=== PATIENT | female | born 1985 | race Caucasian/White ===

== ENCOUNTER 2016-12-21 00:59 | Emergency (ER) | payer OTHER ==
[~2016-12-21 00:59] MED LIST: PREN1CAP30 PO
--- NOTE | 2016-12-21 01:58 | PD ---
HPI Travel History International Travel<30 Days: No Contact w/Intl Traveler<30Days: No Known Affected Area: No History of Present Illness HPI This patient is a 31-year-old 1 para 0 EDC is February 14, 2017 presently at 32 weeks gestation she presents with the chief complaint of sharp pain in the suprapubic area. She states the pain began about 2 days ago which sharp intermittent. Has not changed in intensity nothing makes it better or worse. care with Sall[facility] courses remarkable for significant history of drug abuse. Denies fever no chills no nausea no vomiting denies any urinary tract symptoms no rupture of membranes no vaginal bleeding no recent sexual intercourse no discharge no odor no itching the baby is active has some swelling of her feet Significant history of IV Dilaudid use admits to using about 2 hours before coming in also has used cocaine History Past Medical History Narrative Medical No known drug allergies no major medical problems Obstetric History Obstetric History First Past Surgical History Surgical History: No Previous Surgery Family History Family History: Negative Social History Alcohol Use: No Tobacco Use: Yes (smokes a pack of cigarettes per day) Substance Abuse: Yes (IV Dilaudid cocaine abuse) Allergies-Medications (Allergen,Severity, Reaction): Coded Allergies: *MDRO Multi-Drug Resistant Organism (Verified Adverse Reaction, Unknown, ) MRSA (wrist-05/23/16) Home Meds Active Scripts Without A W/Fe Fum-Fe (Provida Dha 16-16-1.25-110 mg)1 Cap Cap1 Cap PO DAILY #60 BOTTLE Ref 5 Prov:Jocelyn Kay CNM [facility] 10/20/16 Review of Systems Gastrointestinal: Abdominal Pain (sharp suprapubic pain as per history of present illness), No: Nausea, Vomiting, Diarrhea, Hematemesis, Hematochezia, Constipation, Changes in Bowel Habits, Indigestion, Loss of Appetite, Other Genitourinary: No: Urgency, Frequency, Dysuria, Nocturia, Hematuria, Decreased Urinary Output, Oliguria, Hesitancy, Dribbling, Incontinence, Pelvic Pain, Dyspareunia, Discharge, Menorrhagia, Vaginal Bleeding, Other Skin: Other (multiple areas of contracts on various parts of her body) Physical Exam Narrative GENERAL: Well-nourished, well-developed patient. Patient is alert oriented 3 and cooperative in no acute distress SKIN: Warm and dry. Multiple pockmarks and scars on her body HEAD: Normocephalic and atraumatic. EYES: No scleral icterus. No injection or drainage. Conjunctiva are pink ENT: No nasal drainage noted. Mucous membranes pink. Airway patent. NECK: Supple, trachea midline. No JVD. No masses no lymphadenopathy no thyroid enlargement CARDIOVASCULAR: Regular rate and rhythm without murmurs, gallops, or rubs. RESPIRATORY: Breath sounds equal bilaterally. No accessory muscle use. ABDOMEN/GI: Gravid consistent with stated gestational age soft no palpable contractions no epigastric or right upper quadrant tenderness no rebound tenderness no tenderness over the right and left round ligament no tenderness in the suprapubic area Gravid to [-] weeks size consistent with gestational age Fundal Height: [-] GENITOURINARY: Speculum exam is done no fluid no blood no discharge the cervix is visibly closed External Genitalia: intact and normal in appearance BUS glands: [-] Cervix: [-] Posterior firm Dilatation: [-] Closed Effacement: [-] 0 Station: [-] Ballotable Presentation: [-] Vertex Membranes: [intact Uterine Contractions: [-] No palpable contraction FHT's: Category: [-] 1 Baseline: [-] 130 Reactive: [-] + Variability: [-] Moderate [id number] variability Decels: [-] 0 EXTREMITIES: No cyanosis 2+ edema of her lower extremities reflexes normal NEUROLOGICAL: Awake and alert. Motor and sensory grossly within normal limits. Five out of 5 muscle strength in all muscle groups. Normal speech. Data Data Vital Signs Reviewed: Yes (blood pressure 122/81 pulse 94 and pictures 98.2) MDM Medical Record Reviewed: Yes (ultrasound reviewed) Interpretation(s) 31-year-old at 32 weeks Not in labor History of drug abuse Rule out UTI Rule out labor risk Narrative Course / MDM UA is negative urine drug screen is + for opiates and cocaine will discharge patient home po fluid hydration kick counts keep next appt Plan External monitoring By mouth fluid hydration fibronectin Urinalysis Reevaluation Diagnosis Diagnosis: Primary Impression: 32 weeks gestation of Additional Impressions: History of drug abuse Cigarette smoker Majestic Mora' contraction Disposition: DISCHARGE HOME Condition: Stable Kenisha Hollis MD Dec 21, 2016 01:58
[2016-12-21 02:49] LABS: BLOOD, URINE NEG (NEG); GLUCOSE,URINE NEG (NEG); KETONE, URINE TRACE mg/dL (NEG); NITRITE,URINE NEG (NEG); URINE COLOR YELLOW (YELLW/STRAW)
[2016-12-21 02:57] LABS: COMMENT (UR) CULT NOT INDICATED; CULTURE IF INDICATED CULT NOT INDICATED; MUCUS URINE FEW /lpf (OCC); SQUAMOUS EPITHELIAL CELL URINE 1 /hpf (0-5)
[2016-12-21 08:31] LABS: AMPHETAMINE, URINE NEG (NEG); BARBITURATES, URINE NEG (NEG); COCAINE, URINE POS (NEG)
== END 2016-12-21 03:07 | disposition home or self-care (01) ==
LOC: HOBED 00:59
DX: O47.03 False labor before 37 completed weeks of gestation, third trimester (principal); O99.333 Smoking (tobacco) complicating pregnancy, third trimester; Z3A.32 32 weeks gestation of pregnancy
CPT/HCPCS: 80307; 81001; 82731; 99283

== ENCOUNTER 2017-01-24 18:32 | Inpatient (IN) | payer OTHER ==
[~2017-01-24] VITALS: Ht 165.1 cm; Wt 68.0 kg
[2017-01-24] MEDS ORDERED: DILA8TAB4 PO (19:37)
[2017-01-24] MEDS ORDERED: REMOVE OLD PATCH T-DERMAL SCH (20:15)
[2017-01-24] MEDS ORDERED: cloNIDine HCL 0.1 MG TAB PO PRN (20:15)
[2017-01-24] MEDS ORDERED: PROMETHAZINE HCL 25 MG TAB PO PRN (20:15)
[2017-01-24] MEDS ORDERED: SODIUM CHLORIDE 0.9% FLUSH 10 ML FLUSH IV FLUSH PRN (20:30)
[2017-01-24] MEDS: SODIUM CHLORIDE 0.9% FLUSH 10 ML FLUSH IV FLUSH SCH (21:00)
[2017-01-24] MEDS ORDERED: ZOLPIDEM TARTRATE 10 MG TAB PO SCH (21:00)
[2017-01-24] MEDS ORDERED: NICOTINE 21 MG/24 HR PATCH T-DERMAL SCH (21:00)
[2017-01-24 22:01] LABS: BLOOD, URINE NEG (NEG); COMMENT (UR) CULT NOT INDICATED; CULTURE IF INDICATED CULT NOT INDICATED; GLUCOSE,URINE NEG (NEG); KETONE, URINE NEG (NEG); MUCUS URINE FEW /lpf (OCC); NITRITE,URINE NEG (NEG); SQUAMOUS EPITHELIAL CELL URINE 1 /hpf (0-5); URINE COLOR YELLOW (YELLW/STRAW)
[2017-01-24 22:06] LABS: AMPHETAMINE, URINE NEG (NEG); BARBITURATES, URINE NEG (NEG)
[2017-01-24 22:12] LABS: COCAINE, URINE POS (NEG)
[2017-01-25 00:20] VITALS: BP 119/68; PULSE 61
--- NOTE | 2017-01-25 00:31 | HHI.HP ---
History & Physical H&P [facility] OB ED Note (Detail) Patient Name: Melida Moran Unit Number: [id number] Date of : 1985 Patient Status: Admitted Inpatient (obs) Attending Doctor: Lyla Brasher MD HPI HPI Chief Complaint back and abdominal pain Date Seen: Jan 24, 2017 Travel History International Travel<30 Days: No Contact w/Intl Traveler<30Days: No Known Affected Area: No History of Present Illness HPI This is a 31y/o at 37w who presents with her significant other for evaluation of lower back and abdominal pain. On presentation multiple scabs/ scars were noted on her arms and scabs on her face. The scabs on her arms appear infected erythematous with palpable cords in the veins, in fact pt was diagnosed with MRSA in 2016 due to abscess of her wrist. Pt admits to active IVDU in the with: Diluadid 8mg injected 4 times per day, which she crushes and and reconstitutes with tap water and injects, sometimes with a clean needles, sometimes reusing the needle. She also reports crack cocaine use about 1/2 gram per day. Last drug use at 3pm. Pt has used drugs for the last 3 years, has not had any HepC/HIV/cardiac echo in the . She and her partner are both interested in a drug detox program and will reach out to Dr. Reyna for assistance. Pt denies vaginal bleeding, contractions or leakage of fluid with reports of active movements. care at [facility], care complicated by: 1. IVDU and crack cocaine abuse in 2. tobacco abuse in 3. insufficient care, pt has not had labs done as yet Para: 0 : 1 History (Limited) History Past Medical History Medical History: Denies Significant Hx Past Surgical History Surgical History: No Previous Surgery Family History Family History: Negative Social History Alcohol Use: No Tobacco Use: No Substance Abuse: No Allergies-Medications Allergies-Medications (Allergen,Severity, Reaction): Coded Allergies: No Known Allergies (Unverified , 01/24/17) Home Meds Reported Medications Hydromorphone (Dilaudid)8 Mg Tab8 Mg PO Q6H PRN (Pain Management) Ref 0 01/24/17 ROS Review of Systems Except as stated in HPI: all other systems reviewed are Neg Physical Exam Physical Exam Narrative GENERAL: Well-nourished, well-developed patient. SKIN: Warm and dry. HEAD: Normocephalic and atraumatic. EYES: No scleral icterus. No injection or drainage. ENT: No nasal drainage noted. Mucous membranes pink. Airway patent. NECK: Supple, trachea midline. No JVD. CARDIOVASCULAR: Regular rate and rhythm without murmurs, gallops, or rubs. RESPIRATORY: Breath sounds equal bilaterally. No accessory muscle use. BREASTS: Bilateral exam showed no masses , no retractions, no nipple discharge. ABDOMEN/GI: Abdomen soft, non-tender, bowel sounds present, no rebound, no guarding Gravid to 37 weeks size GENITOURINARY: External Genitalia: intact and normal in appearance Cervix: 1/50/-2 FHT's: Category:1 EXTREMITIES: No cyanosis or edema. BACK: Nontender without obvious deformity. No CVA tenderness. NEUROLOGICAL: Awake and alert. Motor and sensory grossly within normal limits. Five out of 5 muscle strength in all muscle groups. Normal speech. Data Data Data Vital Signs Reviewed: Yes Orders Diet Regular Basic (01/24/17 Dinner) Ob (2e) Additional Admit Info (01/24/17 19:50) Special Serology (01/24/17 20:12) Blood Culture (01/24/17 20:13) Ob/Psych Drug Screen, Urine (01/24/17 20:13) Urinalysis - C+S If Indicated (01/24/17 20:13) Specimen To Be Collected PRN (01/24/17 20:13) Hepatic Functional Panel (01/24/17 20:13) Hepatitis C Ab,Igg (01/24/17 20:13) Basic Metabolic Panel (Bmp) (01/24/17 20:13) Complete Blood Count With Diff (01/24/17 20:13) Westergren Sedimentation Rate (01/24/17 20:13) Echo 2d Limited (01/24/17 20:13) Us Ob Bpp Wo Nst (01/24/17 ) Consult Obstetrics (01/24/17 ) Nicotine 21 Mg Patch.24 Hr (Habitrol 21 (01/24/17 21:00) Remove Old Patch (01/24/17 20:15) Clonidine (Catapres) (01/24/17 20:15) Hydroxyzine Pamoate (Vistaril) (01/24/17 20:15) Zolpidem (Ambien) (01/24/17 21:00) Promethazine (Phenergan) (01/24/17 20:15) Place In Observation (01/24/17 ) Vital Signs (Adult) [id number] AWAKE (01/24/17 20:24) Heart (01/24/17 20:24) Activity Oob Ad Narcisa (01/24/17 20:24) Sodium Chloride 0.9% Flush (Ns Flush) (01/24/17 21:00) Sodium Chloride 0.9% Flush (Ns Flush) (01/24/17 20:30) Group B Beta Strep Scrn (Gbs) (01/24/17 20:26) (Hub Use Only)Inp Phy Cons/Ref (01/24/17 ) Ur Bath Salts (01/24/17 19:50) Ur Heroin (01/24/17 19:50) Ur K2 Spice (01/24/17 19:50) Ur Ecstasy (01/24/17 19:50) Phencyclidine Urine (Pcp) (01/24/17 19:50) Gc And Chlamydia Pcr (01/24/17 22:45) Mrsa Pcr Surveillance (01/24/17 19:50) Labs Laboratory Tests Test 01/24/17 19:50 Urine Color YELLOW Urine Turbidity CLEAR Urine pH 6.0 Urine Specific [place] 1.006 Urine Protein NEG Urine Glucose (UA) NEG Urine Ketones NEG Urine Occult Blood NEG Urine Nitrite NEG Urine Bilirubin NEG Urine Urobilinogen LESS THAN 2.0 Urine Leukocyte Esterase SMALL Urine RBC 1 Urine WBC 1 Urine Squamous Epithelial 1 Cells Urine Mucus FEW Microscopic Urinalysis Comment CULT NOT INDICATED Urine Opiates Screen POS Urine Barbiturates Screen NEG Urine Amphetamines Screen NEG Urine Benzodiazepines Screen NEG Urine Cocaine Screen POS Urine Cannabinoids Screen NEG Date/Time Procedure Status Source Growth 01/24/17 19:50 Group B Streptococcus Screen Received Genital Vaginal Pending MDM MDM Medical Record Reviewed: Yes Narrative Course / MDM 31y/o at 37w with IVDU and multiple active abscesses. Plan -blood cultures, cbc, comp, HIV/HepC, gc/chl, LFTs, BMP, ESR, Rubella (all pn labs) -echo in AM -f/u with ID if needed based on results -Dr. Reyna will see patient in AM, placed order for buprenorphine 4mg SL -continuous monitoring overnight -clonidine, vistiril, ambien, phenergan prn symptoms -Nicotine patch q day -NST/BPP in am Lyla Brasher MD Jan 24, 2017 23:50 Lyla Brasher MD Jan 25, 2017 00:31
[2017-01-25 01:05] LABS: WESTERGREN SEDIMENTATION RATE 66 mm/hr (0-20)
[2017-01-25 01:10] LABS: BICARBONATE 25.8 MEQ/L (21.0-32.0); POTASSIUM 3.4 MEQ/L (3.5-5.1)
[2017-01-25 01:12] LABS: INDIRECT BILIRUBIN 0.1 MG/DL (0.0-0.8); TOTAL BILIRUBIN ADULT 0.3 MG/DL (0.2-1.0)
[2017-01-25 01:23] LABS: AUTOMATED NEUTROPHIL # 5.9 TH/MM3 (1.8-7.7); BASOPHIL % 0.4 % (0.0-2.0); EOSINOPHIL # 0.1 TH/MM3 (0-0.4); EOSINOPHIL % 0.7 % (0.0-4.0); HEMATOCRIT 28.9 % (35.0-46.0); HEMO FLAGS DIFF FINAL; LYMPH % 26.7 % (9.0-44.0); LYMPHOCYTE # 2.5 TH/MM3 (1.0-4.8); MEAN CELL VOLUME 62.7 FL (80.0-100.0); MEAN CORPUSCULAR HEMOGLOBIN 20.5 PG (27.0-34.0); MEAN CORPUSCULAR HGB CONC 32.7 % (32.0-36.0); MONO % 8.6 % (0.0-8.0); NEUT % 63.6 % (16.0-70.0); PLATELET COUNT 309 TH/MM3 (150-450); RED BLOOD COUNT 4.61 MIL/MM3 (4.00-5.30); RED CELL DISTRIBUTION WIDTH 16.4 % (11.6-17.2); WHITE BLOOD COUNT 9.2 TH/MM3 (4.0-11.0)
[2017-01-25 02:23] LABS: CHLAMYDIA PCR NOT DETECTED (NOT DETECT); NEISSERIA PCR NOT DETECTED (NOT DETECT)
[2017-01-25] MEDS: SODIUM CHLORIDE 0.9% FLUSH 10 ML FLUSH IV FLUSH SCH (09:00)
[2017-01-25 09:25] VITALS: BP 125/73; PULSE 53
[2017-01-25 09:26] VITALS: RESP 20; TEMP 97.7
--- NOTE | 2017-01-25 09:44 | PD.CONS ---
HPI Chief Complaint withdrawal from dilaudid at around 37 weeks Date Seen: Jan 25, 2017 Travel History International Travel<30 Days: No Contact w/Intl Traveler<30Days: No Known Affected Area: No History of Present Illness HPI 31 yo owf G1 at about 37 1/2 weeks EGA by Deedee ortega at [facility] presented last evening desiring to be started on buprenorphine. She is homeless. Her FOB just was released from shelter and brought her here. 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 They progressed to IV dialuadid and cocaine. She does not share needles but does reuse them. She dissolves the dilaudid in tap water. She has many abcesses on her arms and a hematoma on the left arm. She has severe picking from her cocaine, denies methadone, THC, methamphetamine. Does not drink. Does smoke cigarettes. She gets SOB when walking She has no surgeries other than pilonidal cyst removal in distant past. On no medications. She does not know her hep C or HIV status. GFM No leakage, discharge, bleeding or contractions. Allergies-Medications (Allergen,Severity, Reaction): Coded Allergies: No Known Allergies (Unverified , 01/24/17) Home Meds Reported Medications Hydromorphone (Dilaudid)8 Mg Tab8 Mg PO Q6H PRN (Pain Management) Ref 0 01/24/17 Physical Exam Vital Signs Date Time Temp Pulse Resp B/P Pulse Ox O2 Delivery O2 Flow Rate FiO2 01/25/17 00:20 61 119/68 Narrative GENERAL: ill appearing female in withdrawal with many sores on face, neck and arms SKIN diaphoretic HEAD: Normocephalic and atraumatic. EYES: No scleral icterus. No injection or drainage. ENT: sniffling and coughing and yawning NECK: Supple, trachea midline. No JVD. CARDIOVASCULAR: Regular rate and rhythm without murmurs, gallops, or rubs. RESPIRATORY: Breath sounds equal bilaterally. No accessory muscle use. BREASTS: Bilateral exam showed no masses , no retractions, no nipple discharge. ABDOMEN/GI: Abdomen soft, non-tender, bowel sounds present, no rebound, no guarding Gravid to [-] weeks size Fundal Height: [-] GENITOURINARY: External Genitalia: intact and normal in appearance cervical check /-1 strip category 1 BPP 01/30 EXTREMITIES: Many lesions, abcesses in various stage of healing or acute hematoma, thrombophleblitis BACK: Nontender without obvious deformity. No CVA tenderness. NEUROLOGICAL: Awake and alert. Motor and sensory grossly within normal limits. Five out of 5 muscle strength in all muscle groups. Normal speech. Data Data Orders Diet Regular Basic (01/24/17 Dinner) Ob (2e) Additional Admit Info (01/24/17 19:50) Special Serology (01/24/17 20:12) Blood Culture (01/24/17 20:13) Ob/Psych Drug Screen, Urine (01/24/17 20:13) Urinalysis - C+S If Indicated (01/24/17 20:13) Specimen To Be Collected PRN (01/24/17 20:13) Hepatic Functional Panel (01/24/17 20:13) Hepatitis C Ab,Igg (01/24/17 20:13) Basic Metabolic Panel (Bmp) (01/24/17 20:13) Complete Blood Count With Diff (01/24/17 20:13) Westergren Sedimentation Rate (01/24/17 20:13) Consult Obstetrics (01/24/17 ) Nicotine 21 Mg Patch.24 Hr (Habitrol 21 (01/24/17 21:00) Remove Old Patch (01/24/17 20:15) Clonidine (Catapres) (01/24/17 20:15) Hydroxyzine Pamoate (Vistaril) (01/24/17 20:15) Zolpidem (Ambien) (01/24/17 21:00) Promethazine (Phenergan) (01/24/17 20:15) Place In Observation (01/24/17 ) Vital Signs (Adult) SUDHAKAR.[id number] AWAKE (01/24/17 20:24) Heart (01/24/17 20:24) Activity Oob Ad Narcisa (01/24/17 20:24) Sodium Chloride 0.9% Flush (Ns Flush) (01/24/17 21:00) Sodium Chloride 0.9% Flush (Ns Flush) (01/24/17 20:30) Group B Beta Strep Scrn (Gbs) (01/24/17 20:26) Ur Bath Salts (01/24/17 19:50) Ur Heroin (01/24/17 19:50) Ur K2 Spice (01/24/17 19:50) Ur Ecstasy (01/24/17 19:50) Phencyclidine Urine (Pcp) (01/24/17 19:50) Gc And Chlamydia Pcr (01/24/17 22:45) Mrsa Pcr Surveillance (01/24/17 19:50) (Hub Use Only)Inp Phy Cons/Ref (01/25/17 05:01) Echo 2d Limited (01/25/17 20:13) Us Ob Bpp Wo Nst W Repeat (01/24/17 ) (Hub Use Only)Inp Phy Cons/Ref (01/25/17 ) Consult Infectious Disease (01/25/17 ) Buprenorphine (Buprenorphine) (01/25/17 10:00) Case Management Consult (01/25/17 ) Labs Laboratory Tests Test 01/24/17 01/24/17 01/25/17 19:50 22:45 00:02 Urine Opiates Screen POS Urine Barbiturates Screen NEG Urine Amphetamines Screen NEG Urine Benzodiazepines Screen NEG Urine Cocaine Screen POS Urine Cannabinoids Screen NEG Urine Color YELLOW Urine Turbidity CLEAR Urine pH 6.0 Urine Specific [place] 1.006 Urine Protein NEG Urine Glucose (UA) NEG Urine Ketones NEG Urine Occult Blood NEG Urine Nitrite NEG Urine Bilirubin NEG Urine Urobilinogen LESS THAN 2.0 Urine Leukocyte Esterase SMALL Urine RBC 1 Urine WBC 1 Urine Squamous Epithelial 1 Cells Urine Mucus FEW Microscopic Urinalysis Comment CULT NOT INDICATED Nasal Screen MRSA (PCR) MRSA NOT DETECTED Chlamydia trachomatis DNA NOT DETECTED (PCR) Neisseria gonorrhoeae DNA NOT DETECTED (PCR) White Blood Count 9.2 Red Blood Count 4.61 Hemoglobin 9.4 Hematocrit 28.9 Mean Corpuscular Volume 62.7 Mean Corpuscular Hemoglobin 20.5 Mean Corpuscular Hemoglobin 32.7 Concent Red Cell Distribution Width 16.4 Platelet Count 309 Mean Platelet Volume 9.3 Neutrophils (%) (Auto) 63.6 Lymphocytes (%) (Auto) 26.7 Monocytes (%) (Auto) 8.6 Eosinophils (%) (Auto) 0.7 Basophils (%) (Auto) 0.4 Neutrophils # (Auto) 5.9 Lymphocytes # (Auto) 2.5 Monocytes # (Auto) 0.8 Eosinophils # (Auto) 0.1 Basophils # (Auto) 0.0 CBC Comment DIFF FINAL Differential Comment Erythrocyte Sedimentation Rate 66 Sodium Level 141 Potassium Level 3.4 Chloride Level 108 Carbon Dioxide Level 25.8 Anion Gap 7 Blood Urea Nitrogen 7 Creatinine 0.72 Estimat Glomerular Filtration 94 Rate Random Glucose 97 Calcium Level 8.1 Total Bilirubin 0.3 Direct Bilirubin 0.2 Indirect Bilirubin 0.1 Aspartate Amino Transf 41 (AST/SGOT) Alanine Aminotransferase 39 (ALT/SGPT) Alkaline Phosphatase 206 Total Protein 6.6 Albumin 2.2 Date/Time Procedure Status Source Growth 01/24/17 19:50 Group B Streptococcus Screen Received Genital Vaginal Pending MDM Interpretation(s) near term/term IUP with active withdrawl from IV dilaudid (last used 18 hours ago) COWS 18 start buprenophine support with clonidine and visteral consults for cardiology, ID, psych continuous monitoring she and FOB desire to keep child but have no safe housing, financial support He is actively using [facility] with [facility] called and notified of needs. Mala Reyna MD Jan 25, 2017 09:44
[2017-01-25] MEDS: BUPRENORPHINE HCL 8 MG SUBLINGUAL TAB SL PRN ×2 (10:39→12:37)
--- NOTE | 2017-01-25 12:57 | ECHRPT ---
Indication: endocarditis CONCLUSIONS Normal left ventricular size. Wall thickness is measured at the upper limits of normal. No regional wall motion abnormalities are present. No mitral valve regurgitation. No mitral valve stenosis. The aortic valve is not well visualized. No tricuspid regurgitation. The pulmonary valve is not well visualized. BP: / HR: Rhythm: MEASUREMENTS (Male / Female) Normal Values Technical Quality:Technically difficult study 2D ECHO LV Diastolic Diameter PLAX 4.1 cm 4.2 - 5.9 / 3.9 - 5.3 cm LV Systolic Diameter PLAX 3.0 cm IVS Diastolic Thickness 1.1 cm 0.6 - 1.0 / 0.6 - 0.9 cm LVPW Diastolic Thickness 1.0 cm 0.6 - 1.0 / 0.6 - 0.9 cm LV Relative Wall Thickness 0.5 RV Internal Dim ED PLAX 2.5 cm M-MODE Aortic Root Diameter MM 3.4 cm LA Systolic Diameter MM 3.2 cm LA Ao Ratio MM 0.9 AV Cusp Separation MM 1.8 cm DOPPLER TR Peak Velocity 294.5 cm/s TR Peak Gradient 34.7 mmHg FINDINGS LEFT VENTRICLE Normal left ventricular size. Wall thickness is measured at the upper limits of normal. The left ventricular systolic function is normal with an estimated ejection fraction in the range of 60-65%. No regional wall motion abnormalities are present. RIGHT VENTRICLE Normal right ventricular size and systolic function. LEFT ATRIUM The left atrial size is normal. RIGHT ATRIUM The right atrial size is normal. ATRIAL SEPTUM Normal atrial septal thickness without atrial level shunting by limited color doppler interrogation. AORTA The aortic root and proximal ascending aorta are normal in size on limited imaging. MITRAL VALVE Structurally normal mitral valve. No mitral valve regurgitation. No mitral valve stenosis. AORTIC VALVE The aortic valve is not well visualized. TRICUSPID VALVE Structurally normal tricuspid valve. No tricuspid regurgitation. PULMONARY VALVE The pulmonary valve is not well visualized. VESSELS The inferior vena cava is normal in size. PERICARDIUM No pericardial effusion. Timothy Oh MD, FACC (Electronically Signed) Final Date:25 January 2017 12:56
[2017-01-25 13:56] VITALS: BP 134/71; PULSE 52
[2017-01-28 10:51] LABS: BATH SALTS (MDPV) UR NEG (NEG); ECSTASY (MDMA) UR NEG (NEG); GABAPENTIN UR NEG (NEG); K2 SPICE UR NEG (NEG); OBMETHADONE UR NEG (NEG); OXYCODONE (PERCODAN) NEG (NEG); PHENCYCLIDINE URINE NEG (NEG)
[2017-01-28 10:52] LABS: HYDROMORPHONE U POS (NEG)
[2017-01-28 10:53] LABS: HEROIN (6-ACETYLMORPHINE) UR POS (NEG)
== END 2017-01-25 14:15 | disposition left against medical advice (07) | DRG 781 ==
LOC: HOBED 18:32 → H2EA 19:53 → UNDOADMOB 19:53 → H2EA 20:25 → UNDOADMIN 01-25 09:38 → H2EA 01-25 09:38 → UNDODISOB 01-25 14:15 → UNDODISIN 01-25 14:15
PROVIDERS: ADMIT Obstetrics & Gynecology; ATTEND Obstetrics & Gynecology
DX: O99.323 Drug use complicating pregnancy, third trimester (principal); F15.93 Other stimulant use, unspecified with withdrawal; F14.90 Cocaine use, unspecified, uncomplicated; O99.333 Smoking (tobacco) complicating pregnancy, third trimester; Z3A.37 37 weeks gestation of pregnancy; Z59.0 Homelessness
CPT/HCPCS: 76816; 76819; 80048; 80076; 80307; 81001; 85025; 85652; 86703; 86803; 87081; 87491; 87591; 87640; 87641; 93308; G0481; Q0169

== ENCOUNTER 2017-01-26 00:34 | Inpatient (IN) | payer OTHER ==
[~2017-01-26] VITALS: Ht 165.1 cm; Wt 68.0 kg
[2017-01-26] VITALS (9 sets, daily range): BP systolic 102–118; BP diastolic 59–70; PULSE 52–62; RESP 16–18; TEMP 97.4–98.4
[~2017-01-26 00:34] MED LIST changes: +DILA8TAB4 PO; -PREN1CAP30 PO
--- NOTE | 2017-01-26 01:22 | HHI.HP ---
History & Physical H&P Patient Name: Melida Moran Unit Number: [id number] Date of : 1985 Patient Status: Discharged Inpatient Attending Doctor: Lyla Brasher MD HPI HPI Chief Complaint back and abdominal pain Date Seen: Jan 24, 2017 Travel History International Travel<30 Days: No Contact w/Intl Traveler<30Days: No Known Affected Area: No History of Present Illness HPI This is a 31y/o at 37w who presents with her significant other for evaluation of lower back and abdominal pain. On presentation multiple scabs/ scars were noted on her arms and scabs on her face. The scabs on her arms appear infected erythematous with palpable cords in the veins, in fact pt was diagnosed with MRSA in 2016 due to abscess of her wrist. Pt admits to active IVDU in the with: Diluadid 8mg injected 4 times per day, which she crushes and and reconstitutes with tap water and injects, sometimes with a clean needles, sometimes reusing the needle. She also reports crack cocaine use about 1/2 gram per day. Last drug use at 3pm. Pt has used drugs for the last 3 years, has not had any HepC/HIV/cardiac echo in the . She and her partner are both interested in a drug detox program and will reach out to Dr. Reyna for assistance. Pt denies vaginal bleeding, contractions or leakage of fluid with reports of active movements. care at [facility], care complicated by: 1. IVDU and crack cocaine abuse in 2. tobacco abuse in 3. insufficient care, pt has not had labs done as yet Para: 0 : 1 History (Limited) History Past Medical History Medical History: Denies Significant Hx Past Surgical History Surgical History: No Previous Surgery Family History Family History: Negative Social History Alcohol Use: No Tobacco Use: No Substance Abuse: No Allergies-Medications Allergies-Medications (Allergen,Severity, Reaction): Coded Allergies: No Known Allergies (Unverified , 01/24/17) Home Meds Reported Medications Hydromorphone (Dilaudid)8 Mg Tab8 Mg PO Q6H PRN (Pain Management) Ref 0 01/24/17 ROS Review of Systems Except as stated in HPI: all other systems reviewed are Neg Physical Exam Physical Exam Narrative GENERAL: Well-nourished, well-developed patient. SKIN: Warm and dry. HEAD: Normocephalic and atraumatic. EYES: No scleral icterus. No injection or drainage. ENT: No nasal drainage noted. Mucous membranes pink. Airway patent. NECK: Supple, trachea midline. No JVD. CARDIOVASCULAR: Regular rate and rhythm without murmurs, gallops, or rubs. RESPIRATORY: Breath sounds equal bilaterally. No accessory muscle use. BREASTS: Bilateral exam showed no masses , no retractions, no nipple discharge. ABDOMEN/GI: Abdomen soft, non-tender, bowel sounds present, no rebound, no guarding Gravid to 37 weeks size GENITOURINARY: External Genitalia: intact and normal in appearance Cervix: 50/-2 FHT's: Category:1 EXTREMITIES: No cyanosis or edema. BACK: Nontender without obvious deformity. No CVA tenderness. NEUROLOGICAL: Awake and alert. Motor and sensory grossly within normal limits. Five out of 5 muscle strength in all muscle groups. Normal speech. Data Data Data Vital Signs Reviewed: Yes Orders Diet Regular Basic (01/24/17 Dinner) Ob (2e) Additional Admit Info (01/24/17 19:50) Special Serology (01/24/17 20:12) Blood Culture (01/24/17 20:13) Ob/Psych Drug Screen, Urine (01/24/17 20:13) Urinalysis - C+S If Indicated (01/24/17 20:13) Specimen To Be Collected PRN (01/24/17 20:13) Hepatic Functional Panel (01/24/17 20:13) Hepatitis C Ab,Igg (01/24/17 20:13) Basic Metabolic Panel (Bmp) (01/24/17 20:13) Complete Blood Count With Diff (01/24/17 20:13) Westergren Sedimentation Rate (01/24/17 20:13) Echo 2d Limited (01/24/17 20:13) Us Ob Bpp Wo Nst (01/24/17 ) Consult Obstetrics (01/24/17 ) Nicotine 21 Mg Patch.24 Hr (Habitrol 21 (01/24/17 21:00) Remove Old Patch (01/24/17 20:15) Clonidine (Catapres) (01/24/17 20:15) Hydroxyzine Pamoate (Vistaril) (01/24/17 20:15) Zolpidem (Ambien) (01/24/17 21:00) Promethazine (Phenergan) (01/24/17 20:15) Place In Observation (01/24/17 ) Vital Signs (Adult) SUDHAKAR.[id number] AWAKE (01/24/17 20:24) Heart (01/24/17 20:24) Activity Oob Ad Narcisa (01/24/17 20:24) Sodium Chloride 0.9% Flush (Ns Flush) (01/24/17 21:00) Sodium Chloride 0.9% Flush (Ns Flush) (01/24/17 20:30) Group B Beta Strep Scrn (Gbs) (01/24/17 20:26) (Hub Use Only)Inp Phy Cons/Ref (01/24/17 ) Ur Bath Salts (01/24/17 19:50) Ur Heroin (01/24/17 19:50) Ur K2 Spice (01/24/17 19:50) Ur Ecstasy (01/24/17 19:50) Phencyclidine Urine (Pcp) (01/24/17 19:50) Gc And Chlamydia Pcr (01/24/17 22:45) Mrsa Pcr Surveillance (01/24/17 19:50) Labs Laboratory Tests Test 01/24/17 19:50 Urine Color YELLOW Urine Turbidity CLEAR Urine pH 6.0 Urine Specific [place] 1.006 Urine Protein NEG Urine Glucose (UA) NEG Urine Ketones NEG Urine Occult Blood NEG Urine Nitrite NEG Urine Bilirubin NEG Urine Urobilinogen LESS THAN 2.0 Urine Leukocyte Esterase SMALL Urine RBC 1 Urine WBC 1 Urine Squamous Epithelial 1 Cells Urine Mucus FEW Microscopic Urinalysis Comment CULT NOT INDICATED Urine Opiates Screen POS Urine Barbiturates Screen NEG Urine Amphetamines Screen NEG Urine Benzodiazepines Screen NEG Urine Cocaine Screen POS Urine Cannabinoids Screen NEG Date/Time Procedure Status Source Growth 01/24/17 19:50 Group B Streptococcus Screen Received Genital Vaginal Pending MDM MDM Medical Record Reviewed: Yes Narrative Course / MDM 31y/o at 37w with IVDU and multiple active abscesses. Plan -blood cultures, cbc, comp, HIV/HepC, gc/chl, LFTs, BMP, ESR, Rubella (all pn labs) -echo in AM -f/u with ID if needed based on results -Dr. Reyna will see patient in AM, placed order for buprenorphine 4mg SL -continuous monitoring overnight -clonidine, vistiril, ambien, phenergan prn symptoms -Nicotine patch q day -NST/BPP in am Lyla Brasher MD Jan 25, 2017 00:31 Conrad Diehl II, MD Jan 26, 2017 01:22
[2017-01-26] MEDS ORDERED: ONDANSETRON ODT 4 MG TAB PO PRN (01:30)
[2017-01-26] MEDS ORDERED: ACETAMINOPHEN 325 MG TAB PO PRN (01:30)
[2017-01-26] MEDS ORDERED: ONDANSETRON HCL 4 MG/2 ML VIAL IV PRN (01:30)
[2017-01-26] MEDS ORDERED: ALUMINUM/MAGNESIUM/SIMETH 30 ML CUP PO PRN (01:30)
[2017-01-26] MEDS ORDERED: ZOLPIDEM TARTRATE 5 MG TAB PO PRN (01:30)
--- NOTE | 2017-01-26 01:38 | PD.CONS ---
History & Physical H&P Patient Name: Melida Moran Unit Number: [id number] Date of : 1985 Patient Status: Discharged Inpatient Attending Doctor: Lyla Brasher MD HPI HPI Chief Complaint withdrawal from dilaudid at around 37 weeks Date Seen: Jan 25, 2017 Travel History International Travel<30 Days: No Contact w/Intl Traveler<30Days: No Known Affected Area: No History of Present Illness HPI 31 yo owf G1 at about 37 1/2 weeks EGA by Deedee shannon at [facility] presented last evening desiring to be started on buprenorphine. She is homeless. Her FOB just was released from nursing home and brought her here. 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 They progressed to IV dialuadid and cocaine. She does not share needles but does reuse them. She dissolves the dilaudid in tap water. She has many abcesses on her arms and a hematoma on the left arm. She has severe picking from her cocaine, denies methadone, THC, methamphetamine. Does not drink. Does smoke cigarettes. She gets SOB when walking She has no surgeries other than pilonidal cyst removal in distant past. On no medications. She does not know her hep C or HIV status. GFM No leakage, discharge, bleeding or contractions. History (Limited) History Allergies-Medications Allergies-Medications (Allergen,Severity, Reaction): Coded Allergies: No Known Allergies (Unverified , 01/24/17) Home Meds Reported Medications Hydromorphone (Dilaudid)8 Mg Tab8 Mg PO Q6H PRN (Pain Management) Ref 0 01/24/17 ROS Review of Systems Physical Exam Physical Exam Vital Signs Date Time Temp Pulse Resp B/P Pulse Ox O2 Delivery O2 Flow Rate FiO2 01/25/17 00:20 61 119/68 Narrative GENERAL: ill appearing female in withdrawal with many sores on face, neck and arms SKIN diaphoretic HEAD: Normocephalic and atraumatic. EYES: No scleral icterus. No injection or drainage. ENT: sniffling and coughing and yawning NECK: Supple, trachea midline. No JVD. CARDIOVASCULAR: Regular rate and rhythm without murmurs, gallops, or rubs. RESPIRATORY: Breath sounds equal bilaterally. No accessory muscle use. BREASTS: Bilateral exam showed no masses , no retractions, no nipple discharge. ABDOMEN/GI: Abdomen soft, non-tender, bowel sounds present, no rebound, no guarding Gravid to [-] weeks size Fundal Height: [-] GENITOURINARY: External Genitalia: intact and normal in appearance cervical check 50/-1 strip category 1 BPP 01/30 EXTREMITIES: Many lesions, abcesses in various stage of healing or acute hematoma, thrombophleblitis BACK: Nontender without obvious deformity. No CVA tenderness. NEUROLOGICAL: Awake and alert. Motor and sensory grossly within normal limits. Five out of 5 muscle strength in all muscle groups. Normal speech. Data Data Data Orders Diet Regular Basic (01/24/17 Dinner) Ob (2e) Additional Admit Info (01/24/17 19:50) Special Serology (01/24/17 20:12) Blood Culture (01/24/17 20:13) Ob/Psych Drug Screen, Urine (01/24/17 20:13) Urinalysis - C+S If Indicated (01/24/17 20:13) Specimen To Be Collected PRN (01/24/17 20:13) Hepatic Functional Panel (01/24/17 20:13) Hepatitis C Ab,Igg (01/24/17 20:13) Basic Metabolic Panel (Bmp) (01/24/17 20:13) Complete Blood Count With Diff (01/24/17 20:13) Westergren Sedimentation Rate (01/24/17 20:13) Consult Obstetrics (01/24/17 ) Nicotine 21 Mg Patch.24 Hr (Habitrol 21 (01/24/17 21:00) Remove Old Patch (01/24/17 20:15) Clonidine (Catapres) (01/24/17 20:15) Hydroxyzine Pamoate (Vistaril) (01/24/17 20:15) Zolpidem (Ambien) (01/24/17 21:00) Promethazine (Phenergan) (01/24/17 20:15) Place In Observation (01/24/17 ) Vital Signs (Adult) SUDHAKAR.P1E-UWCUK AWAKE (01/24/17 20:24) Heart (01/24/17 20:24) Activity Oob Ad Narcisa (01/24/17 20:24) Sodium Chloride 0.9% Flush (Ns Flush) (01/24/17 21:00) Sodium Chloride 0.9% Flush (Ns Flush) (01/24/17 20:30) Group B Beta Strep Scrn (Gbs) (01/24/17 20:26) Ur Bath Salts (01/24/17 19:50) Ur Heroin (01/24/17 19:50) Ur K2 Spice (01/24/17 19:50) Ur Ecstasy (01/24/17 19:50) Phencyclidine Urine (Pcp) (01/24/17 19:50) Gc And Chlamydia Pcr (01/24/17 22:45) Mrsa Pcr Surveillance (01/24/17 19:50) (Hub Use Only)Inp Phy Cons/Ref (01/25/17 05:01) Echo 2d Limited (01/25/17 20:13) Us Ob Bpp Wo Nst W Repeat (01/24/17 ) (Hub Use Only)Inp Phy Cons/Ref (01/25/17 ) Consult Infectious Disease (01/25/17 ) Buprenorphine (Buprenorphine) (01/25/17 10:00) Case Management Consult (01/25/17 ) Labs Laboratory Tests Test 01/24/17 01/24/17 01/25/17 19:50 22:45 00:02 Urine Opiates Screen POS Urine Barbiturates Screen NEG Urine Amphetamines Screen NEG Urine Benzodiazepines Screen NEG Urine Cocaine Screen POS Urine Cannabinoids Screen NEG Urine Color YELLOW Urine Turbidity CLEAR Urine pH 6.0 Urine Specific [place] 1.006 Urine Protein NEG Urine Glucose (UA) NEG Urine Ketones NEG Urine Occult Blood NEG Urine Nitrite NEG Urine Bilirubin NEG Urine Urobilinogen LESS THAN 2.0 Urine Leukocyte Esterase SMALL Urine RBC 1 Urine WBC 1 Urine Squamous Epithelial 1 Cells Urine Mucus FEW Microscopic Urinalysis Comment CULT NOT INDICATED Nasal Screen MRSA (PCR) MRSA NOT DETECTED Chlamydia trachomatis DNA NOT DETECTED (PCR) Neisseria gonorrhoeae DNA NOT DETECTED (PCR) White Blood Count 9.2 Red Blood Count 4.61 Hemoglobin 9.4 Hematocrit 28.9 Mean Corpuscular Volume 62.7 Mean Corpuscular Hemoglobin 20.5 Mean Corpuscular Hemoglobin 32.7 Concent Red Cell Distribution Width 16.4 Platelet Count 309 Mean Platelet Volume 9.3 Neutrophils (%) (Auto) 63.6 Lymphocytes (%) (Auto) 26.7 Monocytes (%) (Auto) 8.6 Eosinophils (%) (Auto) 0.7 Basophils (%) (Auto) 0.4 Neutrophils # (Auto) 5.9 Lymphocytes # (Auto) 2.5 Monocytes # (Auto) 0.8 Eosinophils # (Auto) 0.1 Basophils # (Auto) 0.0 CBC Comment DIFF FINAL Differential Comment Erythrocyte Sedimentation Rate 66 Sodium Level 141 Potassium Level 3.4 Chloride Level 108 Carbon Dioxide Level 25.8 Anion Gap 7 Blood Urea Nitrogen 7 Creatinine 0.72 Estimat Glomerular Filtration 94 Rate Random Glucose 97 Calcium Level 8.1 Total Bilirubin 0.3 Direct Bilirubin 0.2 Indirect Bilirubin 0.1 Aspartate Amino Transf 41 (AST/SGOT) Alanine Aminotransferase 39 (ALT/SGPT) Alkaline Phosphatase 206 Total Protein 6.6 Albumin 2.2 Date/Time Procedure Status Source Growth 01/24/17 19:50 Group B Streptococcus Screen Received Genital Vaginal Pending MDM MDM Interpretation(s) near term/term IUP with active withdrawl from IV dilaudid (last used 18 hours ago) COWS 18 start buprenophine support with clonidine and visteral consults for cardiology, ID, psych Conrad Diehl II, MD Jan 26, 2017 01:38
[2017-01-26] MEDS ORDERED: PROMETHAZINE HCL 25 MG TAB PO PRN (01:45)
[2017-01-26] MEDS: BUPRENORPHINE HCL 8 MG SUBLINGUAL TAB SL ONE ×4 (02:06→10:55)
[2017-01-26 02:22] LABS: AMPHETAMINE, URINE NEG (NEG); BARBITURATES, URINE NEG (NEG)
[2017-01-26 02:28] LABS: COCAINE, URINE POS (NEG)
[2017-01-26] MEDS: DOCUSATE SODIUM 100 MG CAP PO SCH (09:00)
[2017-01-26] MEDS: NICOTINE 21 MG/24 HR PATCH T-DERMAL SCH (09:08)
[2017-01-26] MEDS: FERROUS SULFATE 325 MG (65 MG ELEMENTAL IRON) TAB PO SCH ×2 (09:08→21:50)
[2017-01-26] MEDS: MULTIVIT/MIN/PREN/FOL AC/IRON PRENATAL TAB PO SCH (09:08)
[2017-01-26] MEDS ORDERED: GABAPENTIN 400 MG CAP PO ONE (09:15)
--- NOTE | 2017-01-26 09:29 | PD.CONS ---
HPI Chief Complaint Ms. Montez ran out of L & D yesterday with her boyfriend and returned at 2 am having snorted significant cocaine and IV heroin in site where her IV of yesterday had been. As per my note yesterday she is 31 yo P1 at term by very poor dates who is in active addiction and initially desired treatment but became dope sick and left. At this time she is starting to show signs of withdrawal. Strip is category one. She has no symptoms of cramps, bleeding, and notes good movement. Cervix is one cm/80/-1 and stripped. Her arm is traumatized from her use yesterday. Discussed with Dr. Diehl. Fluid is less than 5 and we will start cytotec for oligo and active addiction. We discussed the lastl 24 hour's events at length. She states the subutex didn' t help her dope sickness and I explained she didn't give us time to add additonal subutex or gabapentin. We reviewed need for induction. I reviewed her physician certificate and that if she leaves she will be arrested and labor in [facility]. She was understanding and appears remorseful. I told her we will do our best to prevent dope sickness and pain, and give her whatever safe medications we can. Her mom is working with Anand Rodas who is the court liaisan for [facility] to get a [place] exparte started today. She cannot leave. We will get an IV first, use cytotec or arom by Dr. Diehl and the residents I will be available for consultation. Date Seen: Jan 26, 2017 Travel History International Travel<30 Days: No Contact w/Intl Traveler<30Days: No Known Affected Area: No Allergies-Medications (Allergen,Severity, Reaction): Coded Allergies: No Known Allergies (Unverified , 01/24/17) Home Meds Reported Medications Hydromorphone (Dilaudid)8 Mg Tab8 Mg PO Q6H PRN (Pain Management) Ref 0 01/24/17 Physical Exam Vital Signs Date Time Temp Pulse Resp B/P Pulse Ox O2 Delivery O2 Flow Rate FiO2 01/26/17 05:47 57 01/26/17 05:47 18 113/61 01/26/17 05:46 97.7 01/26/17 03:52 62 102/66 01/26/17 03:52 16 01/26/17 03:51 97.4 01/26/17 01:42 53 16 118/70 01/26/17 01:41 97.6 Narrative GENERAL: Well-nourished, well-developed patient. SKIN: Warm and dry. HEAD: Normocephalic and atraumatic. EYES: No scleral icterus. No injection or drainage. ENT: No nasal drainage noted. Mucous membranes pink. Airway patent. NECK: Supple, trachea midline. No JVD. CARDIOVASCULAR: Regular rate and rhythm without murmurs, gallops, or rubs. RESPIRATORY: Breath sounds equal bilaterally. No accessory muscle use. BREASTS: Bilateral exam showed no masses , no retractions, no nipple discharge. ABDOMEN/GI: Abdomen soft, non-tender, bowel sounds present, no rebound, no guarding Gravid to [-] weeks size Fundal Height: [-] GENITOURINARY: External Genitalia: intact and normal in appearance BUS glands: [-] Cervix: [-] Dilatation: [-] Effacement: [-] Station: [-] Presentation: [-] Membranes: [intact or ruptured] Uterine Contractions: [-] FHT's: Category: [-] Baseline: [-] Reactive: [-] Variability: [-] Decels: [-] EXTREMITIES: No cyanosis or edema. BACK: Nontender without obvious deformity. No CVA tenderness. NEUROLOGICAL: Awake and alert. Motor and sensory grossly within normal limits. Five out of 5 muscle strength in all muscle groups. Normal speech. Data Data Orders Admit To Inpatient (01/26/17 ) Diet Regular Basic (01/26/17 Breakfast) Vital Signs (Adult) SUDHAKAR.P3P-IUVVS AWAKE (01/26/17 01:28) Vital Signs (Adult) SUDHAKAR.QSHIFT (01/26/17 01:28) Vital Signs (Adult) SUDHAKAR.QSHIFT (01/26/17 01:28) Heart SUDHAKAR.QSHIFT (01/26/17 01:28) Heart (01/26/17 01:28) ^ Monitor (01/26/17 01:28) Heart SUDHAKAR.QD (01/26/17 01:28) Activity Oob Ad Narcisa (01/26/17 01:28) Activity Bed Rest With Brp (01/26/17 01:28) Activity Bed Rest (01/26/17 01:28) ^ Massage (01/26/17 01:28) Acetaminophen (Tylenol) (01/26/17 01:30) Ybhzhgns-Yee-Onngl-Iron Prenat (Stuartna (01/26/17 09:00) Docusate Sodium (Colace) (01/26/17 09:00) Al-Mag Hy-Si 40-40-4 Mg/Ml Liq (Mag-Al P (01/26/17 01:30) Zolpidem (Ambien) (01/26/17 01:30) Ondansetron Odt (Zofran Odt) (01/26/17 01:30) Ondansetron Inj (Zofran Inj) (01/26/17 01:30) Consult Perinatology (01/26/17 ) Ferrous Sulfate (Ferrous Sulfate) (01/26/17 09:00) Buprenorphine (Buprenorphine) (01/26/17 02:00) Clonidine (Catapres) (01/26/17 01:45) Hydroxyzine Pamoate (Vistaril) (01/26/17 01:45) Nicotine 21 Mg Patch.24 Hr (Habitrol 21 (01/26/17 09:00) Promethazine (Phenergan) (01/26/17 01:45) Lorazepam Inj (Ativan Inj) (01/26/17 01:45) Ob (2e) Additional Admit Info (01/26/17 01:39) Ob/Psych Drug Screen, Urine (01/26/17 01:52) Ur Bath Salts (01/26/17 01:00) Ur Heroin (01/26/17 01:00) Ur K2 Spice (01/26/17 01:00) Ur Ecstasy (01/26/17 01:00) Phencyclidine Urine (Pcp) (01/26/17 01:00) Equip, Isolation Cart (01/26/17 05:38) Rapid Plasmin Reagin Screen (01/26/17 09:03) Rubella Immune Status (01/26/17 09:03) Hepatitis B Surface Ag (01/26/17 09:03) Gabapentin (Neurontin) (01/26/17 09:15) Ob (2e) Additional Admit Info (01/26/17 09:12) Hepatitis C Rna Genotype (01/26/17 09:13) Hepatitis C Rna Quantitative (01/26/17 09:13) Labs Laboratory Tests Test 01/26/17 01:00 Urine Opiates Screen POS Urine Barbiturates Screen NEG Urine Amphetamines Screen NEG Urine Benzodiazepines Screen POS Urine Cocaine Screen POS Urine Cannabinoids Screen NEG Mala Reyna MD Jan 26, 2017 09:29
[2017-01-26] MEDS ORDERED: LACTATED RINGER'S 1000 ML INJ 1,000 ML IV PRN (09:33)
[2017-01-26] MEDS ORDERED: SODIUM CHLORID 0.9% 500 ML INJ 500 ML IV PRN (09:45)
[2017-01-26] MEDS ORDERED: MINERAL OIL 10 ML VIAL TOPICAL PRN (09:45)
[2017-01-26] MEDS ORDERED: OXYTOCIN 30 UNITS-500ML PREMIX 500 ML IV ONE (09:45)
[2017-01-26] MEDS ORDERED: LIDOCAINE HCL 1% 50 ML VIAL INFIL PRN (09:45)
[2017-01-26] MEDS ORDERED: CITRIC ACID-SODIUM CITRATE LIQ 30 ML UDC PO SCH (09:45)
[2017-01-26] MEDS ORDERED: LIDOCAINE HCL 1% 50 ML VIAL I-DERMAL PRN (09:45)
[2017-01-26] MEDS ORDERED: SODIUM CHLOR 0.9% 1000 ML INJ 1,000 ML IV PRN (09:53)
[2017-01-26] MEDS ORDERED: BUPRENORPHINE HCL 8 MG SUBLINGUAL TAB SL SCH ×2 (10:30→13:00)
[2017-01-26 10:37] LABS: AUTOMATED NEUTROPHIL # 5.5 TH/MM3 (1.8-7.7); BASOPHIL # 0.1 TH/MM3 (0-0.2); BASOPHIL % 0.6 % (0.0-2.0); EOSINOPHIL # 0.1 TH/MM3 (0-0.4); EOSINOPHIL % 0.8 % (0.0-4.0); HEMATOCRIT 32.8 % (35.0-46.0); HEMO FLAGS DIFF FINAL; LYMPH % 27.9 % (9.0-44.0); LYMPHOCYTE # 2.4 TH/MM3 (1.0-4.8); MEAN CELL VOLUME 63.1 FL (80.0-100.0); MEAN CORPUSCULAR HEMOGLOBIN 19.3 PG (27.0-34.0); MEAN CORPUSCULAR HGB CONC 30.5 % (32.0-36.0); MONO % 6.6 % (0.0-8.0); NEUT % 64.1 % (16.0-70.0); PLATELET COUNT 294 TH/MM3 (150-450); RED CELL DISTRIBUTION WIDTH 16.5 % (11.6-17.2); WHITE BLOOD COUNT 8.6 TH/MM3 (4.0-11.0)
[2017-01-26 11:22] LABS: RUBELLA STATUS IMMUNE (IMMUNE)
[2017-01-26 12:16] LABS: GROUP B STREP PCR NEGATIVE (NEGATIVE)
[2017-01-26 13:09] LABS: MRSA PCR SURVEILLANCE MRSA NOT DETECTED (NOT DETECT)
[2017-01-26] MEDS ORDERED: MISOPROSTOL 25 MCG SUPP VAGINAL ONE (13:45)
--- NOTE | 2017-01-26 14:36 | PD.LABORPN ---
Subjective Subjective OBHG Lengthy discussion with patient at 12pm, discussed in detail plans and indication for Induction of labor based on recommendations from Dr. Reyna due to h/o drug abuse and recent use after leaving AMA yesterday. Her UDS is positive for opiates and cocaine. Discussed that at this time, IOL can get her a safe baby, but if she were to use again, that may not be the case. Discussed goals of IOL with healthy and mother with vaginal delivery. Discussed risks oand indications of C/S, but would reserve C/S for appropriate labor or indications. The patient refused the induction of labor at that time until we could confirm with Dr. Reyna that there are ongoing attempts to place patient in rehab facility. FHR reassuring, category 1. SVE /-2, posterior by exam at this time. I subsequently spoke with Dr. Reyna who assured me that the plan is for patient to go to detox, then to rehab after delivery. Despite speaking with Dr. Reyna, the patient is continuing to refuse the induction at this time. She and her boyfriend states that she will be agreeable to the induction and understands the concerns if she can complete her nap first. She states she doesn't want the baby born today, but if it were born tomorrow that would be fine. Discussed with this is her first , and while I can not guarantee, it is likely that the baby won't be born until tomorrow due to the IOL process. Will await onset of IOL until after patient naps as is her request. Objective Vital Signs Vital Signs Date Time Temp Pulse Resp B/P Pulse Ox O2 Delivery O2 Flow Rate FiO2 01/26/17 13:15 18 01/26/17 13:08 52 116/59 01/26/17 09:15 98.4 Objective Pelvic Exam: Cervix: [-] Dilatation: [-] Effacement: [-] Station: [-] Presentation: [-] Membranes: [intact or ruptured] Uterine Contractions: [-] FHT's: Category: [-] Baseline: [-] Reactive: [-] Variability: [-] Decels: [-] Jacqueline Sorenson MD Jan 26, 2017 14:35
[2017-01-26] MEDS: LACTATED RINGER'S 1000 ML INJ 1,000 ML IV SCH ×2 (16:07→22:59)
--- NOTE | 2017-01-26 16:24 | PD.LABORPN ---
Subjective Subjective Discussed need for delivery and reassured that she will not be abandoned wrt recovery once delivered. She can refuse the subutex until she feels she needs it. Since she refuses cytotec we discussed and she allowed arom.Wants to eat one meal. Objective Vital Signs Vital Signs Date Time Temp Pulse Resp B/P Pulse Ox O2 Delivery O2 Flow Rate FiO2 01/26/17 13:15 18 01/26/17 13:08 52 116/59 01/26/17 09:15 98.4 Objective 1-2/50/sot/-2 vertex arom meconium one variable noted and BTB a little less otherwise good. Assessment/Plan Assessment and Plan discussed with Dr. Sorenson and residents will start pitocin low dose after light meal hope for baby tolerates labor Please keep patient until Sunday She is acted and we will need to figure out where to go next. Mala Reyna MD Jan 26, 2017 16:24
[2017-01-26] MEDS ORDERED: MISOPROSTOL 25 MCG SUPP VAGINAL PRN (17:45)
[2017-01-26] MEDS: BUPRENORPHINE HCL 8 MG SUBLINGUAL TAB SL SCH (18:00)
--- NOTE | 2017-01-26 19:15 | PD.LABORPN ---
Subjective Subjective Notified by nurse that patient has come off the monitor and patient is refusing to allow the nurse to readjust the monitor. I went in to check on the patient and she is refusing to be monitored. I discussed that we are monitoring the baby to ensure the status of the baby and assess wellbeing. I discussed that without monitoring, the status could change and result in and/or brain damage and/or . The patient states "I don't care about the baby" and that she "I don't care if the baby dies." Patient states she is "mad" that her boyfriend had to leave with the [place] act and that is the only thing that was keeping her here was her boyfriend. I discussed that Dr. Reyna had discussed this with her when I was present at the bedside and that she was aware this had been placed by Dr. Reyna. She continues to refuse monitoring; discussed that we will be unable to start oxytocin as was the plan per Dr. Reyna when AROM performed by Dr. Reyna. Discussed gabapentin with Dr. Reyna, ok to increase to 600mg QID. Will order. Objective Vital Signs Vital Signs Date Time Temp Pulse Resp B/P Pulse Ox O2 Delivery O2 Flow Rate FiO2 01/26/17 13:15 18 01/26/17 13:08 52 116/59 Objective Pelvic Exam: Cervix: [-] Dilatation: [-] Effacement: [-] Station: [-] Presentation: [-] Membranes: [intact or ruptured] Uterine Contractions: [-] FHT's: Category: [-] Baseline: [-] Reactive: [-] Variability: [-] Decels: [-] Jacqueline Sorenson MD Jan 26, 2017 19:15
[2017-01-26] MEDS: cloNIDine HCL 0.1 MG TAB PO PRN (19:26)
[2017-01-26] MEDS: GABAPENTIN 300 MG CAP PO SCH ×2 (19:52→21:00)
[2017-01-26] MEDS: LORazepam 2 MG/ML VIAL IM PRN (21:31)
--- NOTE | 2017-01-26 21:53 | PD.LABORPN ---
Subjective Subjective OBHG S: patient appears to be resting comfortable, recently received ativan O: VSS AF FHT: 120s, moderate LTV, good accels, no decels [place]: patient on side SVE: deferred A/P: 1. IUP at 37.2 2. IOL: patient in agreement with continuing induction at this time, is allowing monitoring so will start oxytocin, patient with no questions at this time 3. GBS neg 4. FHR reassuring, continue EFM 5. h/o hepatitis C Objective Objective Pelvic Exam: Cervix: [-] Dilatation: [-] Effacement: [-] Station: [-] Presentation: [-] Membranes: [intact or ruptured] Uterine Contractions: [-] FHT's: Category: [-] Baseline: [-] Reactive: [-] Variability: [-] Decels: [-] Jacqueline Sorenson MD Jan 26, 2017 21:52
[2017-01-26] MEDS ORDERED: OXYTOCIN 30 UNITS-500ML PREMIX 500 ML IV SCH (22:00)
[2017-01-27] MEDS ORDERED: fentaNYL 2MCG-BUPIV 0.125% INJ 100 ML ONE ×3 (00:51→13:49)
--- NOTE | 2017-01-27 00:57 | PD.LABORPN ---
Subjective Subjective OBHG S: patient c/o pain, requesting epidural O: VSS AF FHT: 120s, moderate LTV, good accels, no decels [place]: q 2-5min SVE: deferred A/P: 1. IUP at 37.3 2. Polysubstance abuse: cocaine and opiate use, induction of labor for same, medications as per Dr. Reyna 3. wellbeing: reassuring testing 4. IOL: due to above, s/p AROM by Dr. Reyna, now on oxytocin with regular ctx pattern 5. GBS neg 6. [facility] act in place: psych consult in am Objective Objective Pelvic Exam: Cervix: [-] Dilatation: [-] Effacement: [-] Station: [-] Presentation: [-] Membranes: [intact or ruptured] Uterine Contractions: [-] FHT's: Category: [-] Baseline: [-] Reactive: [-] Variability: [-] Decels: [-] Jacqueline Sorenson MD Jan 27, 2017 00:57
[2017-01-27] MEDS: LACTATED RINGER'S 1000 ML INJ 1,000 ML IV SCH (01:33)
[2017-01-27] MEDS: BUPRENORPHINE HCL 8 MG SUBLINGUAL TAB SL SCH ×2 (02:00→10:00)
--- NOTE | 2017-01-27 05:23 | PD.LABORPN ---
Subjective Subjective OBHG: S: patient resting O: VSS AF FHT: 130s, moderate LTV, good accels, and no decels at this time [place]:SVE: 3-4/80/-1 A/P: 1. IUP at 37.3 2. Polysubstance abuse: IOL for the same, making cervical change with oxytocin, will continue 3. wellbeing: FHR reassuring at this time, will monitor closely 4. GBS neg Objective Vital Signs Vital Signs Date Time Temp Pulse Resp B/P Pulse Ox O2 Delivery O2 Flow Rate FiO2 01/27/17 00:51 18 Jacqueline Sorenson MD Jan 27, 2017 05:23 Dilatation: [-] Effacement: [-] Station: [-] Presentation: [-] Membranes: [intact or ruptured] Uterine Contractions: [-] FHT's: Category: [-] Baseline: [-] Reactive: [-] Variability: [-] Decels: [-] Jacqueline Sorenson MD Jan 27, 2017 05:23
[2017-01-27 07:31] VITALS: RESP 18
[2017-01-27] MEDS: cloNIDine HCL 0.1 MG TAB PO PRN (08:04)
[2017-01-27] MEDS: FERROUS SULFATE 325 MG (65 MG ELEMENTAL IRON) TAB PO SCH ×2 (08:04→23:22)
[2017-01-27] MEDS: MULTIVIT/MIN/PREN/FOL AC/IRON PRENATAL TAB PO SCH (08:04)
[2017-01-27] MEDS: NICOTINE 21 MG/24 HR PATCH T-DERMAL SCH (08:05)
[2017-01-27] MEDS: GABAPENTIN 300 MG CAP PO SCH ×3 (08:05→23:29)
[2017-01-27] MEDS: DOCUSATE SODIUM 100 MG CAP PO SCH ×2 (09:00→23:22)
[2017-01-27] MEDS ORDERED: LACTATED RINGER'S 1000 ML INJ 1,000 ML IV ONE (09:15)
--- NOTE | 2017-01-27 09:46 | PD.LABORPN ---
Subjective Subjective OBHG S: patient comfortable after epidural redosed O: VSS AF, T99.7 per RN FHT: 150s, moderate LTV, no decels at this time. had run of elevated FHR but without decels and resolved with IVF [place]: q 2-3m SVE: 4/C/-1 A/P: 1. IUP at 37.3 2. IOL for polysubstance abuse: patient cooperating with medical recommendations at this time, appears to be entering active labor phase, will continue oxytocin 3. Was AROM early at 1cm/50: on oxytocin and entering active labor as above, will monitor for chorioamnionitis but mild tachycardia has resolved. monitor closely. 3. Hep C Ab positive: have not yet personally spoken with patient as other tests pending, avoid FSE 4. GBS neg 5. wellbeing: overall reassuring testing, continue monitoring Objective Vital Signs Vital Signs Date Time Temp Pulse Resp B/P Pulse Ox O2 Delivery O2 Flow Rate FiO2 01/27/17 07:31 18 Jacqueline Sorenson MD Jan 27, 2017 09:46
[2017-01-27] MEDS: LORazepam 2 MG/ML VIAL IM PRN ×2 (13:21→23:20)
[2017-01-27] MEDS ORDERED: DIPHTH/TETANUS/ACEL PERTUSSIS (BOOSTER) 0.5 ML VIAL/PFS IM ONE (16:00)
[2017-01-27] MEDS ORDERED: MEASLES, MUMPS, RUBELLA VACCINE 0.5 ML VIAL SQ ONE (16:00)
[2017-01-27 17:30] LABS: BLOOD GAS BASE EXCESS -6.7 mmol/L (-2-2); BLOOD GAS O2 HGB SATURATION 24 % (90-100); CORD BLOOD GAS HCO3 19 mmol/L (21-29); CORD BLOOD GAS PCO2 41 mmHG (34-78); CORD BLOOD GAS PH 7.28 (7.14-7.42); CORD BLOOD GAS PO2 15 mmHG (3.0-40.0); DRAW SITE CORD BLOOD; STAT NO
--- NOTE | 2017-01-27 18:00 | PD.OB.DELI ---
Anesthesia: Epidural Episiotomy: Midline Vaginal Delivery: Forceps Presentation: Occiput posterior Nuchal Cord: None Delayed cord clamping (45 sec): No Infant: Male One Minute : 4 Five Minute : 8 Placenta: Spontaneous delivery, Intact, Cord pH Laceration: Episiotomy, Perineal laceration, 4 deg, Involving anal sphincter, Into rectum Repair: Chromic running, Vicryl interrupted Additional Information low outlet forcep due to large deep FHR decelerations with each pushing and meconium fluid , I felt the 2 nd stage needed to end YING and since baby was OP and she was not pushing effectively , forceps used to facilitate delivery Conrad Diehl II, MD Jan 27, 2017 18:00
[2017-01-27] MEDS ORDERED: ONDANSETRON ODT 4 MG TAB PO PRN (18:15)
[2017-01-27] MEDS ORDERED: BENZOCAINE 20% TOPICAL SPRAY 60 ML CAN TOPICAL PRN (18:15)
[2017-01-27] MEDS ORDERED: WITCH HAZEL 50%/GLYCERIN 12.5% 40 PAD JAR TOPICAL PRN (18:15)
[2017-01-27] MEDS ORDERED: OXYTOCIN 30 UNITS-500ML PREMIX 500 ML IV SCH (18:15)
[2017-01-27] MEDS ORDERED: SODIUM CHLORIDE 0.9% FLUSH 10 ML FLUSH IV FLUSH PRN (18:15)
[2017-01-27] MEDS ORDERED: ACETAMINOPHEN 325 MG TAB PO PRN (18:15)
[2017-01-27] MEDS ORDERED: CLINDAMYCIN INJ 600 MG in SODIUM CHLORIDE 0.9% INJ 100 ML IV SCH (20:00)
[2017-01-27] MEDS ORDERED: SODIUM CHLORIDE 0.9% FLUSH 10 ML FLUSH IV FLUSH SCH (21:00)
[2017-01-27] MEDS: IBUPROFEN 600 MG TAB PO PRN (23:21)
[2017-01-28] MEDS: BUPRENORPHINE HCL 8 MG SUBLINGUAL TAB SL SCH ×3 (02:00→17:23)
--- NOTE | 2017-01-28 06:25 | PD.PSY.CON ---
Provisional Diagnosis Admission Date Jan 26, 2017 at 09:14 [place] I. 1. Suspected polysubstance dependence [place] II. Deferred History of Present Illness Service Psychiatry Consult Requested By Dr. Osborn Reason for Consult patient with history of IV drug use. Primary Care Physician Conrad Diehl II, MD HPI Ms. Moran is a 31-year-old female with a history of substance use issues who is presently admitted to the obstetrics floor following delivery of her son yesterday afternoon. Reviewing the electronic medical record, I note that the patient has no prior psychiatric contact within our system. Paper chart reviewed. I note that there is a act on the chart initiated by the patient's father and signed by Judge Sams. Patient seen and examined with nurse. Chart reviewed. 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 The patient is now reportedly homeless. She is noted by nursing staff to be somewhat irritable and minimally cooperative. On my examination today, the patient initially declines psychiatric evaluation entirely. After explaining the purpose of my visit, the patient does consent to a brief interview. Affect is generally dysphoric, but the patient does not describe any depressive or hypomanic/manic symptoms. She denies any suicidal or homicidal ideation. She denies any homicidal ideation directed against her infant child. She denies any audiovisual hallucinations. No delusional material elicited. Psychiatric interview is limited because the patient is fairly uncooperative still. Past psychiatric history: The patient denies a history of psychiatric diagnosis. She denies a history of inpatient or outpatient psychiatric admission. She denies a history of suicide attempts. Family history: The patient denies a family history of serious mental illness, substance use disorder or suicide. Chemical dependency history: The patient is particularly defensive on this point and concludes the interview once her substance use is broached. Urine toxicology is positive for opiates, benzodiazepines and cocaine. Social history: The patient is single. She does have a boyfriend who was reportedly released from intermediate recently. She has no other children. She previously worked as an occupational therapist. She denies any active legal issues, although the patient's nurse suggests that she may have some warrants out. She is reportedly presently without stable housing. Review of Systems ROS Limitations: Uncooperative, Poor Historian Other Limited. Pt uncooperative. Past Family Social History Coded Allergies: No Known Allergies (Unverified , 01/24/17) Past Medical History See EMR. Reported Medications Hydromorphone (Dilaudid)8 Mg Tab8 Mg PO Q6H PRN (Pain Management) Ref 0 01/24/17 Current Medications Medications (Trade) Dose Ordered Sig/Lisbeth Route Start Time Stop Time Status Last Admin (Tylenol) 650 mg Q4H PRN PO 01/26/17 01:30 (Stuartnatal Plus 3 ) 1 tab DAILY PO 01/26/17 09:00 01/27/17 08:04 (Mag-Al Plus Susp Liq) 30 ml QID PRN PO 01/26/17 01:30 (Zofran Inj) 4 mg Q6H PRN IV 01/26/17 01:30 (Ferrous Sulfate) 325 mg BID PO 01/26/17 09:00 01/27/17 23:22 (Catapres) 0.1 mg Q6H PRN PO 01/26/17 01:45 01/27/17 08:04 (Vistaril) 50 mg Q6H PRN PO 01/26/17 01:45 (Habitrol 21 Mg Patch.24 Hr) 1 patch DAILY T-DERMAL 01/26/17 09:00 01/27/17 08:05 (Phenergan) 25 mg Q6H PRN PO 01/26/17 01:45 Lorazepam 1 mg 1 mg Q4H PRN IM 01/26/17 01:45 01/27/17 23:20 Lactated Ringer's 1,000 ml @ 125 mls/hr Q8H IV 01/26/17 09:33 01/27/17 01:33 Lactated Ringer's 1,000 ml @ 3,000 mls/hr Q20M PRN IV 01/26/17 09:33 (NS 1000 ml Inj) 1,000 ml @ 100 mls/hr Q10H PRN IV 01/26/17 09:53 (Muri-Lube Oil) 10 ml UNSCH PRN TOPICAL 01/26/17 09:45 (Buprenorphine) 8 mg Q8H SL 01/26/17 18:00 Gabapentin 600 mg 600 mg QID PO 01/26/17 19:30 01/27/17 23:29 (Pitocin 30 Units-NS 500 ml Premix) 500 ml @ 0 mls/hr TITRATE IV 01/26/17 22:00 01/26/17 23:04 (Lomotil Tab) 1 tab Q6HR PO 01/27/17 18:15 (Colace) 100 mg BID PO 01/27/17 21:00 01/27/17 23:22 (NS Flush) 2 ml BID IV FLUSH 01/27/17 21:00 (NS Flush) 2 ml UNSCH PRN IV FLUSH 01/27/17 18:15 01/28/17 00:00 (Tylenol) 650 mg Q4H PRN PO 01/27/17 18:15 (Motrin) 600 mg Q6H PRN PO 01/27/17 18:15 01/27/17 23:21 (Americaine 20% Top Spr) 1 spray Q4H PRN TOPICAL 01/27/17 18:15 01/27/17 22:00 Witch Josee/ Glycerin 1 applic 1 applic QID PRN TOPICAL 01/27/17 18:15 01/27/17 22:00 (Cleocin Inj/NS Inj) 104 ml @ 208 mls/hr Q8H IV 01/28/17 00:00 01/28/17 00:00 Patient's Strengths (min. 2) [place] Act. Verbally fluent. Physical Exam Physical exam completed by primary team. On my examination today, the patient appears to be in no acute physical distress. Several scarred lesions on her forearms noted. No motor abnormalities noted. Labs and vitals reviewed: Vital Signs Vital Signs Date Time Temp Pulse Resp B/P Pulse Ox O2 Delivery O2 Flow Rate FiO2 01/27/17 07:31 18 01/26/17 13:08 52 116/59 01/26/17 09:15 98.4 Lab Results Laboratory Tests Test 01/26/17 01/26/17 01/26/17 01/26/17 01:00 09:45 10:00 10:05 Urine Opiates Screen POS Urine Barbiturates Screen NEG Urine Amphetamines Screen NEG Urine Benzodiazepines Screen POS Urine Cocaine Screen POS Urine Cannabinoids Screen NEG Nasal Screen MRSA (PCR) MRSA NOT DETECTED Group B Streptococcus (PCR) NEGATIVE White Blood Count 8.6 TH/MM3 Red Blood Count 5.20 MIL/MM3 Hemoglobin 10.0 GM/DL Hematocrit 32.8 % Mean Corpuscular Volume 63.1 FL Mean Corpuscular Hemoglobin 19.3 PG Mean Corpuscular Hemoglobin 30.5 % Concent Red Cell Distribution Width 16.5 % Platelet Count 294 TH/MM3 Mean Platelet Volume 8.9 FL Neutrophils (%) (Auto) 64.1 % Lymphocytes (%) (Auto) 27.9 % Monocytes (%) (Auto) 6.6 % Eosinophils (%) (Auto) 0.8 % Basophils (%) (Auto) 0.6 % Neutrophils # (Auto) 5.5 TH/MM3 Lymphocytes # (Auto) 2.4 TH/MM3 Monocytes # (Auto) 0.6 TH/MM3 Eosinophils # (Auto) 0.1 TH/MM3 Basophils # (Auto) 0.1 TH/MM3 CBC Comment DIFF FINAL Differential Comment Hepatitis B Surface Antigen NEGATIVE Rubella Immunity Screen IMMUNE Rubella Antibody, Quantitative 157.0 IU/mL Blood Type B NEGATIVE Antibody Screen NEGATIVE Blood Bank Comment Band and Hold Test 01/27/17 17:02 Blood Gas Puncture Site CORD BLOOD Blood Gas Base Excess -6.7 mmol/L Blood Gas Oxygen Saturation 24 % Cord Blood HCO3 19 mmol/L Cord Arterial Blood pH 7.28 Cord Arterial Blood PCO2 41 mmHG Cord Arterial Blood PO2 15 mmHG Mental Status Examination Speech: Unremarkable Orientation: Person, Place (at least) Memory: Unremarkable Thought Process: Goal Directed, Linear Thought Content: Other (No delusions.) Hallucination Type: None Attention and Concentration: Other (Fair) Suicidal Ideation: No Previous Suicide Attempts: No Homicidal Ideation: No Previous Homicide Attempts: No Insight: Poor Judgment: Poor Affect: Other (Restricted, irritable) Mood: Other (Dysphoric) Assessment & Plan Problem List: (1) Polysubstance dependence ICD Code: F19.20 Assessment & Plan This is a 31-year-old female with psychiatric history as detailed above who is following delivery of her son yesterday. Psychiatry is consulted because the patient has a history of substance use issues. On my examination today, the patient declines to discuss the substance use issues, but her urine toxicology was positive for opiates, benzodiazepines and cocaine. I note that a [place] act has been completed in the patient's case, and the nurse informs me that older adult social work specialist has been notified as well regarding the disposition of the infant. My psychiatric evaluation was quite limited as the patient is uncooperative, although there are no obvious signs of unstable mood, anxiety or psychotic disorder in this patient. She does not require inpatient psychiatric hospitalization at this time. She would likely benefit from chemical dependency treatment such as will hopefully be provided through the [place] act, and I agree that older adult social work specialist ought be involved as appropriate. Otherwise, I have no specific recommendations at this time. Case discussed with RN. Thank you very much for this consultation. Please call or page with questions. Austin Golden MD Jan 28, 2017 06:25
--- NOTE | 2017-01-28 08:31 | HHI.OB ---
Subjective Post Day: 1 Remarks Pt seen and examined this morning. day # 1 AFVSS overnight. Decreased lochia. Denies dysuria. No breast tenderness. She is feeding the baby via bottle. Appetite good. No nausea or vomiting. Patient has not yet had a bowel movement and does not endorse passing gas at this time. She has declined ambulating thus far. Denies calf pain or shortness of breath. Otherwise, she is doing well this morning and has no other concerns. Objective Objective Remarks GENERAL: Well-nourished, well-developed patient with decreased arousability. CARDIOVASCULAR: Regular rate and rhythm without murmurs, gallops, or rubs. RESPIRATORY: Breath sounds equal bilaterally. No accessory muscle use. ABDOMEN/GI: Abdomen soft, non-tender. +BS. Fundus: Firm, non-tender at umbilicus. GENITOURINARY: Light to moderate bleeding. Moderate labial swelling. Incision examined, CDI. EXTREMITIES: No cyanosis or edema, non-tender, without signs of DVT. Medications and IVs Current Medications Medications (Trade) Dose Ordered Sig/Lisbeth Route Start Time Stop Time Status Last Admin (Tylenol) 650 mg Q4H PRN PO 01/26/17 01:30 (Stuartnatal Plus 3 ) 1 tab DAILY PO 01/26/17 09:00 01/27/17 08:04 (Mag-Al Plus Susp Liq) 30 ml QID PRN PO 01/26/17 01:30 (Zofran Inj) 4 mg Q6H PRN IV 01/26/17 01:30 (Ferrous Sulfate) 325 mg BID PO 01/26/17 09:00 01/27/17 23:22 (Catapres) 0.1 mg Q6H PRN PO 01/26/17 01:45 01/27/17 08:04 (Vistaril) 50 mg Q6H PRN PO 01/26/17 01:45 (Habitrol 21 Mg Patch.24 Hr) 1 patch DAILY T-DERMAL 01/26/17 09:00 01/27/17 08:05 (Phenergan) 25 mg Q6H PRN PO 01/26/17 01:45 Lorazepam 1 mg 1 mg Q4H PRN IM 01/26/17 01:45 01/27/17 23:20 Lactated Ringer's 1,000 ml @ 125 mls/hr Q8H IV 01/26/17 09:33 01/27/17 01:33 Lactated Ringer's 1,000 ml @ 3,000 mls/hr Q20M PRN IV 01/26/17 09:33 (NS 1000 ml Inj) 1,000 ml @ 100 mls/hr Q10H PRN IV 01/26/17 09:53 (Muri-Lube Oil) 10 ml UNSCH PRN TOPICAL 01/26/17 09:45 (Buprenorphine) 8 mg Q8H SL 01/26/17 18:00 Gabapentin 600 mg 600 mg QID PO 01/26/17 19:30 01/27/17 23:29 (Pitocin 30 Units-NS 500 ml Premix) 500 ml @ 0 mls/hr TITRATE IV 01/26/17 22:00 01/26/17 23:04 (Lomotil Tab) 1 tab Q6HR PO 01/27/17 18:15 (Colace) 100 mg BID PO 01/27/17 21:00 01/27/17 23:22 (NS Flush) 2 ml BID IV FLUSH 01/27/17 21:00 (NS Flush) 2 ml UNSCH PRN IV FLUSH 01/27/17 18:15 01/28/17 00:00 (Tylenol) 650 mg Q4H PRN PO 01/27/17 18:15 (Motrin) 600 mg Q6H PRN PO 01/27/17 18:15 01/27/17 23:21 (Americaine 20% Top Spr) 1 spray Q4H PRN TOPICAL 01/27/17 18:15 01/27/17 22:00 Witch Josee/ Glycerin 1 applic 1 applic QID PRN TOPICAL 01/27/17 18:15 01/27/17 22:00 (Cleocin Inj/NS Inj) 104 ml @ 208 mls/hr Q8H IV 01/28/17 00:00 01/28/17 00:00 Assessment/Plan Assessment and Plan 31 y/o female who is # 1 s/p forceps assisted vaginal delivery with fourth degree tear. -Continue routine care. -Toradol and Motrin PRN pain. Avoiding narcotics due to opioid abuse. -Encouraged OOB. Advised pelvic rest for 6 wks. -Re: ctrl, she would like to discuss her options at her follow-up appointment. -Anticipate discharge likely tomorrow pending clinical course. Case management consulted. hilaria Diehl MD Discharge Planning Likely tomorrow Jerry Osborn MD R2 Jan 28, 2017 08:31
[2017-01-28] MEDS: CLINDAMYCIN INJ 600 MG in SODIUM CHLORIDE 0.9% INJ 100 ML IV SCH ×5 (10:30→23:52)
[2017-01-28] MEDS: MULTIVIT/MIN/PREN/FOL AC/IRON PRENATAL TAB PO SCH (10:30)
[2017-01-28] MEDS: GABAPENTIN 300 MG CAP PO SCH ×4 (10:30→21:13)
[2017-01-28] MEDS: FERROUS SULFATE 325 MG (65 MG ELEMENTAL IRON) TAB PO SCH ×2 (10:31→21:13)
[2017-01-28] MEDS: DOCUSATE SODIUM 100 MG CAP PO SCH ×2 (10:31→21:12)
[2017-01-28] MEDS: NICOTINE 21 MG/24 HR PATCH T-DERMAL SCH (10:33)
[2017-01-28] MEDS: LORazepam 2 MG/ML VIAL IM PRN ×3 (11:02→21:13)
[2017-01-28] MEDS: DIPHENOXYLATE/ATROPINE 2.5 MG/0.025 MG TAB PO SCH ×2 (12:00→17:17)
[2017-01-28] MEDS: IBUPROFEN 600 MG TAB PO PRN (14:16)
[2017-01-28] MEDS: cloNIDine HCL 0.1 MG TAB PO PRN (17:35)
[2017-01-28] MEDS ORDERED: traMADol HCL 50 MG TAB PO PRN (20:15)
[2017-01-28] MEDS: traMADol HCL 50 MG TAB PO PRN (22:16)
[2017-01-29] MEDS: LORazepam 2 MG/ML VIAL IM PRN ×3 (01:14→10:52)
[2017-01-29] MEDS: IBUPROFEN 600 MG TAB PO PRN ×2 (01:19→10:52)
[2017-01-29] MEDS: CLINDAMYCIN INJ 600 MG in SODIUM CHLORIDE 0.9% INJ 100 ML IV SCH (08:00)
--- NOTE | 2017-01-29 08:13 | HHI.OB ---
Subjective Post Day: 2 Remarks Patient is a 31-year-old delivered at 37 weeks and 3 days. Patient is day 2 after . Patient's pain is not well-controlled; she currently rates her pain as a 7 out of 10. Patient reports eating and drinking without any nausea or vomiting. Patient reports bleeding more than a period. However per nurse report, patient has only soaked through 2 pads overnight and then had small to scant vaginal bleeding on exam. Patient has passed gas but no bowel movements. Patient is walking without lower extremity pain or shortness of breath or chest pain. Patient reports desire for contraception with OCPs. Objective Objective Remarks GENERAL: Well-nourished, well-developed patient with decreased arousability. CARDIOVASCULAR: Regular rate and rhythm without murmurs, gallops, or rubs. RESPIRATORY: Breath sounds equal bilaterally. No accessory muscle use. ABDOMEN/GI: Abdomen soft, non-tender. +BS. Fundus: Firm, non-tender at umbilicus. GENITOURINARY: Light to moderate bleeding. Incision examined, CDI. EXTREMITIES: No cyanosis or edema, non-tender, without signs of DVT. Medications and IVs Current Medications Medications (Trade) Dose Ordered Sig/Lisbeth Route Start Time Stop Time Status Last Admin (Tylenol) 650 mg Q4H PRN PO 01/26/17 01:30 (Stuartnatal Plus 3 ) 1 tab DAILY PO 01/26/17 09:00 01/28/17 10:30 (Mag-Al Plus Susp Liq) 30 ml QID PRN PO 01/26/17 01:30 (Zofran Inj) 4 mg Q6H PRN IV 01/26/17 01:30 (Ferrous Sulfate) 325 mg BID PO 01/26/17 09:00 01/28/17 21:13 (Catapres) 0.1 mg Q6H PRN PO 01/26/17 01:45 01/28/17 17:35 (Vistaril) 50 mg Q6H PRN PO 01/26/17 01:45 (Habitrol 21 Mg Patch.24 Hr) 1 patch DAILY T-DERMAL 01/26/17 09:00 01/28/17 10:33 (Phenergan) 25 mg Q6H PRN PO 01/26/17 01:45 Lorazepam 1 mg 1 mg Q4H PRN IM 01/26/17 01:45 01/29/17 06:30 Lactated Ringer's 1,000 ml @ 125 mls/hr Q8H IV 01/26/17 09:33 01/27/17 01:33 Lactated Ringer's 1,000 ml @ 3,000 mls/hr Q20M PRN IV 01/26/17 09:33 (NS 1000 ml Inj) 1,000 ml @ 100 mls/hr Q10H PRN IV 01/26/17 09:53 (Muri-Lube Oil) 10 ml UNSCH PRN TOPICAL 01/26/17 09:45 (Buprenorphine) 8 mg Q8H SL 01/26/17 18:00 01/28/17 10:31 Gabapentin 600 mg 600 mg QID PO 01/26/17 19:30 01/28/17 21:13 (Pitocin 30 Units-NS 500 ml Premix) 500 ml @ 0 mls/hr TITRATE IV 01/26/17 22:00 01/26/17 23:04 (Lomotil Tab) 1 tab Q6HR PO 01/27/17 18:15 (Colace) 100 mg BID PO 01/27/17 21:00 01/28/17 21:12 (NS Flush) 2 ml BID IV FLUSH 01/27/17 21:00 (NS Flush) 2 ml UNSCH PRN IV FLUSH 01/27/17 18:15 01/28/17 00:00 (Motrin) 600 mg Q6H PRN PO 01/27/17 18:15 01/29/17 01:19 (Americaine 20% Top Spr) 1 spray Q4H PRN TOPICAL 01/27/17 18:15 01/27/17 22:00 Witch Josee/ Glycerin 1 applic 1 applic QID PRN TOPICAL 01/27/17 18:15 01/27/17 22:00 (Cleocin Inj/NS Inj) 104 ml @ 208 mls/hr Q8H IV 01/28/17 00:00 01/28/17 23:52 (Ultram) 50 mg Q6H PRN PO 01/28/17 20:15 (Ultram) 100 mg Q6H PRN PO 01/28/17 20:15 01/28/17 22:16 Assessment/Plan Problem List: (1) Polysubstance dependence (2) (spontaneous vaginal delivery) Assessment and Plan 31 y/o female who is # 2 s/p forceps assisted vaginal delivery with fourth degree tear. -Continue routine care. -Toradol and Motrin PRN pain. Avoiding narcotics due to opioid abuse. -Encouraged OOB. Advised pelvic rest for 6 wks. -Re: ctrl, will discharge with OCPs -Anticipate discharge likely tomorrow pending clinical course: pain management and vaginal bleeding management. Case management consulted. hilaria Sorenson MD Discharge Planning Likely today Crow Dean MD R2 Jan 29, 2017 08:13
[2017-01-29] MEDS: DOCUSATE SODIUM 100 MG CAP PO SCH (09:00)
[2017-01-29] MEDS: MULTIVIT/MIN/PREN/FOL AC/IRON PRENATAL TAB PO SCH (09:00)
[2017-01-29] MEDS ORDERED: lamoTRIgine 25 MG TAB PO SCH (09:00)
[2017-01-29] MEDS: GABAPENTIN 300 MG CAP PO SCH ×2 (09:00→11:59)
[2017-01-29] MEDS: NICOTINE 21 MG/24 HR PATCH T-DERMAL SCH (09:00)
[2017-01-29] MEDS ORDERED: DULoxetine HCl DR 30 MG CAP PO SCH (09:00)
[2017-01-29] MEDS: FERROUS SULFATE 325 MG (65 MG ELEMENTAL IRON) TAB PO SCH (09:00)
[2017-01-29] MEDS: BUPRENORPHINE HCL 8 MG SUBLINGUAL TAB SL SCH (10:00)
[2017-01-29 10:02] LABS: RAPID PLASMA REAGIN SCREEN NON-REACTIVE (NON-REACTVE)
[2017-01-29] MEDS ORDERED: ORTH0.35 PO (11:24)
[2017-01-29] MEDS: traMADol HCL 50 MG TAB PO PRN (11:53)
[2017-01-29] MEDS: DIPHENOXYLATE/ATROPINE 2.5 MG/0.025 MG TAB PO SCH ×2 (11:56)
[2017-01-29] MEDS ORDERED: DOCU1CAP39 PO (14:47)
[2017-01-29] MEDS ORDERED: BUPR8SUB SL (14:47)
[2017-01-29] MEDS ORDERED: NEUR300C PO (14:47)
[2017-01-29] MEDS ORDERED: ULTR50TA5 PO (14:47)
[2017-01-29] MEDS ORDERED: LAMO25 PO (14:47)
[2017-01-29] MEDS ORDERED: DULO1CAP2 PO (14:47)
[2017-01-29] MEDS ORDERED: HYDR50CA PO (14:47)
[2017-01-29] MEDS ORDERED: IBUP-232 PO (14:47)
[2017-01-29] MEDS ORDERED: CLON.1 PO (14:47)
--- NOTE | 2017-01-29 14:48 | HHI.DCPOC ---
Discharge Care Plan Diagnosis: (1) (spontaneous vaginal delivery) (2) Polysubstance dependence Report Symptoms to Your Doctor -Temperature above 100.5 degrees -Redness, of incision or excessive or foul smelling drainage -Unusual pain or calf pain -Increased vaginal bleeding -Painful or difficulty urinating -Feelings of extreme sadness or anxiety after 2 weeks Goals to Promote Your Health * To prevent worsening of your condition and complications, please follow up with Dr. Reyna and take Suboxone, Gabapentin, Duloxetine, and Lamictal as prescribed, and other medications as needed. * To maintain your health at the optimal level, please avoid all illicit drugs. Directions to Meet Your Goals Take your medications as prescribed Follow your dietary instruction Follow activity as directed Ensure plenty of rest for recovery Drink fluids for hydration Keep your appointments as scheduled Take your immunizations and boosters as scheduled If your symptoms worsen call your PCP, if no PCP go to Urgent Care Center or Emergency Room Smoking is Dangerous to Your Health. Avoid second hand smoke Call the 24-hour crisis hotline for domestic abuse at Crow Dean MD R2 Jan 29, 2017 14:48
[2017-01-31 11:52] LABS: PHENCYCLIDINE URINE NEG (NEG)
[2017-01-31 11:53] LABS: OBMETHADONE UR NEG (NEG)
[2017-01-31 11:54] LABS: ECSTASY (MDMA) UR NEG (NEG)
[2017-01-31 11:55] LABS: BATH SALTS (MDPV) UR NEG (NEG); GABAPENTIN UR NEG (NEG); K2 SPICE UR NEG (NEG); OXYCODONE (PERCODAN) NEG (NEG)
[2017-01-31 11:57] LABS: HEROIN (6-ACETYLMORPHINE) UR POS (NEG); HYDROMORPHONE U POS (NEG)
[2017-01-31 23:52] LABS: HCV RNA PCR LOGIU/ML 6.67 (())
== END 2017-01-29 15:27 | DRG 774 ==
LOC: HOBED 00:34 → H2EA 01:40 → UNDOADMIN 01:40 → H2EB 09:14 → EEVIPCON 09:14 → H1EA 01-27 22:25
PROVIDERS: ADMIT Obstetrics & Gynecology Maternal & Fetal Medicine; ATTEND Obstetrics & Gynecology Maternal & Fetal Medicine
PROC: 10907ZC Drainage of Amniotic Fluid, Therapeutic from Products of Conception, Via Natural or Artificial Opening (ICD-10-PCS; 2017-01-26)
PROC: 3E033VJ Introduction of Other Hormone into Peripheral Vein, Percutaneous Approach (ICD-10-PCS; 2017-01-26)
PROC: 10D07Z3 Extraction of Products of Conception, Low Forceps, Via Natural or Artificial Opening (ICD-10-PCS; principal; 2017-01-27)
PROC: 0DQP0ZZ Repair Rectum, Open Approach (ICD-10-PCS; 2017-01-27)
PROC: 0W8NXZZ Division of Female Perineum, External Approach (ICD-10-PCS; 2017-01-27)
DX: O98.813 Other maternal infectious and parasitic diseases complicating pregnancy, third trimester (principal); O41.1230 Chorioamnionitis, third trimester, not applicable or unspecified; O99.324 Drug use complicating childbirth; O87.0 Superficial thrombophlebitis in the puerperium; F11.23 Opioid dependence with withdrawal; F14.23 Cocaine dependence with withdrawal; O70.4 Anal sphincter tear complicating delivery, not associated with third degree laceration; O99.72 Diseases of the skin and subcutaneous tissue complicating childbirth; O77.0 Labor and delivery complicated by meconium in amniotic fluid; O76 Abnormality in fetal heart rate and rhythm complicating labor and delivery; F17.210 Nicotine dependence, cigarettes, uncomplicated; Z3A.37 37 weeks gestation of pregnancy; Z37.0 Single live birth; Z59.0 Homelessness; Z86.14 Personal history of Methicillin resistant Staphylococcus aureus infection; Z86.19 Personal history of other infectious and parasitic diseases
CPT/HCPCS: 59025; 76937; 80307; 82805; 85025; 85461; 86592; 86762; 86850; 86900; 86901; 87081; 87150; 87340; 87522; 87641; 87902; 88307; G0481; J2060; J2590; J3010; J7120

== ENCOUNTER 2017-01-31 09:06 | Emergency (ER) | payer OTHER ==
[~2017-01-31] VITALS: Ht 165.1 cm; Wt 63.0 kg
[~2017-01-31 09:06] MED LIST changes: +BUPR8SUB SL; +CLON.1 PO; +DOCU1CAP39 PO; +DULO1CAP2 PO; +HYDR50CA PO; +IBUP-232 PO; +LAMO25 PO; +NEUR300C PO; +ORTH0.35 PO; +ULTR50TA5 PO
[2017-01-31 09:15] VITALS: BP 155/78; PULSE 50; RESP 14; TEMP 98.1
[2017-01-31] MEDS ORDERED: BACT800T5 PO (11:34)
[2017-01-31] MEDS ORDERED: COLA100C PO (11:34)
--- NOTE | 2017-01-31 11:37 | PD ---
HPI Chief Complaint: [employer] Medic Problem/Complaint Time Seen by Provider: 09:43 Travel History International Travel<30 days: No Contact w/Intl Traveler<30days: No Traveled to known affect area: No History of Present Illness HPI The patient was seen and examined in the presence of the nurse. This patient was discharged from the hospital 2 days ago and sent back to residential after a vaginal delivery. She did have a fourth degree tear which went into the rectum. She presents today for repeat evaluation. He's had a bit of vaginal bleeding since the delivery. No active hemorrhaging. Duration 2 days PFSH Past Medical History Medical History: Denies Significant Hx ?: Not Past Surgical History Other Surgery: Yes (CYST REMOVAL) Social History Alcohol Use: No Tobacco Use: Yes (1 PPD) Substance Use: Yes (DILAUDID INJECTION) Allergies-Medications (Allergen,Severity, Reaction): Coded Allergies: *MDRO Multi-Drug Resistant Organism (Verified Adverse Reaction, Unknown, ) MRSA PCR Negative x 2 (01/26/17 & 01/29/17)--Cleared per Infection Control no need to isolate for MRSA Hx Prior to 01/29/17 Hx MRSA Wound 05/23/17 Reported Meds & Prescriptions Reported Meds & Active Scripts Active Ultram (Tramadol HCl) 50 Mg Tab 50 Mg PO Q6H PRN Lamictal (Lamotrigine) 25 Mg Tab 25 Mg PO DAILY Ibuprofen 600 Mg Tab 600 Mg PO Q6H PRN Hydroxyzine Pamoate 50 Mg Cap 50 Mg PO Q6H PRN Neurontin (Gabapentin) 300 Mg Cap 600 Mg PO QID Duloxetine DR (Duloxetine HCl) 30 Mg Capdr 30 Mg PO DAILY Dok (Docusate Sodium) 100 Mg Cap 100 Mg PO BID Catapres (Clonidine) 0.1 Mg Tab 0.1 Mg PO Q6H PRN Buprenorphine (Buprenorphine HCl) 8 Mg Subl 8 Mg SL Q8H Ortho Micronor-35 (Norethindrone) 0.35 Mg Tab 1 Tab PO DAILY Reported Dilaudid (Hydromorphone HCl) 8 Mg Tab 8 Mg PO Q6H PRN Review of Systems General / Constitutional: No: Fever HENT: No: Headaches Respiratory: No: Cough Physical Exam Narrative GASTROINTESTINAL: Abdomen soft, non-tender, nondistended. Positive bowel sounds. No hepato-splenomegaly, or palpable masses. No guarding. SKIN: Focused skin assessment reveals no rash or ulcers. Skin is warm and dry. Palpation shows no induration or nodules. : No active hemorrhaging. There is a scant bit of blood in the vault. Appears to be some degree of peritoneal dehiscence not involving sphincter Data Data Last Documented VS Vital Signs Date Time Temp Pulse Resp B/P Pulse Ox O2 Delivery O2 Flow Rate FiO2 01/31/17 09:15 98.1 50 14 155/78 MDM Medical Decision Making Medical Screen Exam Complete: Yes Emergency Medical Condition: Yes Medical Record Reviewed: Yes Differential Diagnosis Wound infection, dehiscence, wound reevaluation Narrative Course I have reviewed the patient's electronic medical record. Reviewed her delivery note from a few days ago I spoke with the OB hospitalist. She came down to the room and examined the patient. She determined no repair is needed at this time. She recommends that she go back to the residential with some Colace and an antibiotic prescription. I've written her the prescriptions. Diagnosis Primary Impression: Encounter for wound re-check Additional Instructions: The patient was advised to follow up with their physician and return if they worsen. Med/Other Pt SpecificInfo: Prescription(s) given Scripts Docusate Sodium (Colace)100 Mg [id number] Mg PO BID #10 Prov:Rudy Garcia MD 01/31/17 Sulfamethoxazole-Trimethoprim (Bactrim DS)800-160 Mg Tab1 Tab PO BID #14 TAB Ref 0 Prov:Rudy Garcia MD 01/31/17 Disposition: [address] LAW ENFORCEMNT Condition: Stable Rudy Garcia MD Jan 31, 2017 11:36
--- NOTE | 2017-01-31 11:38 | PD.CONS ---
HPI Chief Complaint Vaginal bleeding/possible defect in episotomy repair Date Seen: Jan 31, 2017 Travel History International Travel<30 Days: No Contact w/Intl Traveler<30Days: No Known Affected Area: No History of Present Illness HPI 31 yo s/p Forceps assisted vaginal delivery on 01-27-17, currently incarcerated, presents with vaginal bleeding and reporting defect in episotomy repair. Patient denies clots. Reports pain at repair site, improving since delivery. Denies BM since discharge from hospital. Denies urinary problems. History Past Medical History Medical History: Denies Significant Hx Past Surgical History Surgical History: No Previous Surgery Family History Family History: Negative Social History Alcohol Use: No Tobacco Use: No Substance Abuse: Yes (Hx of IVDA) Allergies-Medications (Allergen,Severity, Reaction): Coded Allergies: *MDRO Multi-Drug Resistant Organism (Verified Adverse Reaction, Unknown, ) MRSA PCR Negative x 2 (01/26/17 & 01/29/17)--Cleared per Infection Control no need to isolate for MRSA Hx Prior to 01/29/17 Hx MRSA Wound 05/23/17 Home Meds Active Scripts Tramadol (Ultram)50 Mg Tab50 Mg PO Q6H PRN (PAIN 1-5) #30 TAB Prov:Crow Dean MD R2 01/29/17 Lamotrigine (Lamictal)25 Mg Tab25 Mg PO DAILY #30 TAB Prov:Crow Dean MD R2 01/29/17 Ibuprofen 600 Mg Vvv590 Mg PO Q6H PRN ( CRAMPING) #30 TAB Prov:Crow Dean MD R2 01/29/17 Hydroxyzine Pamoate 50 Mg Cap50 Mg PO Q6H PRN (RESTLESSNESS) #30 CAP Prov:Crow Dean MD R2 01/29/17 Gabapentin (Neurontin)300 Mg Asr231 Mg PO QID #120 CAP Prov:Crow Dean MD R2 01/29/[address] 30 Mg Capdr30 Mg PO DAILY #30 CAP Prov:Crow Dean MD R2 01/29/17 Docusate Sodium (Dok)100 Mg Dli953 Mg PO BID #30 CAP Prov:Crow Dean MD R2 01/29/17 Clonidine (Catapres)0.1 Mg Tab0.1 Mg PO Q6H PRN (AGITATION) #30 TAB Prov:Crow Dean MD R2 01/29/17 Buprenorphine 8 Mg Subl8 Mg SL Q8H #90 Prov:Crow Dean MD R2 01/29/17 Norethindrone (Ortho Micronor-35)0.35 Mg Tab1 Tab PO DAILY #1 PACK Ref 0 Prov:Crow Dean MD R2 01/29/17 Reported Medications Hydromorphone (Dilaudid)8 Mg Tab8 Mg PO Q6H PRN (Pain Management) Ref 0 01/24/17 Physical Exam Vital Signs Date Time Temp Pulse Resp B/P Pulse Ox O2 Delivery O2 Flow Rate FiO2 01/31/17 09:15 98.1 50 14 155/78 Narrative GENERAL: Well-nourished, well-developed patient. SKIN: Warm and dry. HEAD: Normocephalic and atraumatic. EYES: No scleral icterus. No injection or drainage. ENT: No nasal drainage noted. Mucous membranes pink. Airway patent. NECK: Supple, trachea midline. No JVD. CARDIOVASCULAR: Regular rate and rhythm without murmurs, gallops, or rubs. RESPIRATORY: Breath sounds equal bilaterally. No accessory muscle use. BREASTS: Bilateral exam showed no masses , no retractions, no nipple discharge. ABDOMEN/GI: Abdomen soft, non-tender, bowel sounds present, no rebound, no guarding Gravid to [-] weeks size Fundal Height: [-] GENITOURINARY: External Genitalia: NEFG, repair noted to be intact, slight discoloration around suture line, no masses palpated, rectal exam WNL BUS glands: [-] Cervix: [-] Dilatation: [-] Effacement: [-] Station: [-] Presentation: [-] Membranes: [intact or ruptured] Uterine Contractions: [-] FHT's: Category: [-] Baseline: [-] Reactive: [-] Variability: [-] Decels: [-] EXTREMITIES: No cyanosis or edema. BACK: Nontender without obvious deformity. No CVA tenderness. NEUROLOGICAL: Awake and alert. Motor and sensory grossly within normal limits. Five out of 5 muscle strength in all muscle groups. Normal speech. Data Data Vital Signs Reviewed: Yes MDM Interpretation(s) S/p Forceps assisted vaginal delivery with 4th degree laceration and repair. Plan D/w patient wound care of repair site. Recommendation for stool softner and antibiotics. Keep f/u as scheduled. All questions answered. D/w ED physician. Disposition: 01 DISCHARGE HOME Christie Mason MD Jan 31, 2017 11:38
== END 2017-01-31 12:02 | disposition home or self-care (01) ==
LOC: NEPE 09:06
DX: N93.9 Abnormal uterine and vaginal bleeding, unspecified (principal); F17.210 Nicotine dependence, cigarettes, uncomplicated; F15.90 Other stimulant use, unspecified, uncomplicated
CPT/HCPCS: 99283

== ENCOUNTER 2017-08-02 03:01 | Emergency (ER) | payer OTHER ==
[~2017-08-02] VITALS: Ht 165.1 cm; Wt 55.0 kg
[~2017-08-02 03:01] MED LIST changes: +BACT800T5 PO; +COLA100C5 PO; +TRAM50 PO; -ULTR50TA5 PO
[2017-08-02 03:11] VITALS: BP 122/72; PULSE 97; RESP 18; O2SAT 98
[2017-08-02] MEDS ORDERED: ASPIRIN 81 MG CHEW TAB CHEW ONE (04:00)
[2017-08-02] MEDS ORDERED: LORazepam 1 MG TAB PO ONE (04:00)
[2017-08-02 04:14] LABS: BASOPHIL % 0.3 % (0.0-2.0); HEMATOCRIT 32.8 % (35.0-46.0); HEMOGLOBIN 10.7 GM/DL (11.6-15.3); LYMPHOCYTE # 1.2 TH/MM3 (1.0-4.8); MEAN CELL VOLUME 66.3 FL (80.0-100.0); MEAN CORPUSCULAR HEMOGLOBIN 21.6 PG (27.0-34.0); MEAN CORPUSCULAR HGB CONC 32.5 % (32.0-36.0); MEAN PLATELET VOLUME 7.7 FL (7.0-11.0); MONO % 7.6 % (0.0-8.0); MONOCYTE # 1.2 TH/MM3 (0-0.9); NEUT % 84.1 % (16.0-70.0); PLATELET COUNT 365 TH/MM3 (150-450); RED BLOOD COUNT 4.94 MIL/MM3 (4.00-5.30); WHITE BLOOD COUNT 15.4 TH/MM3 (4.0-11.0)
--- NOTE | 2017-08-02 04:28 | PD ---
HPI Chief Complaint: Pain: Acute or Chronic Time Seen by Provider: 03:42 Travel History International Travel<30 days: No Contact w/Intl Traveler<30days: No Traveled to known affect area: No History of Present Illness HPI Patient called the paramedics and police were called as well for domestic disturbance. Paramedics arrived to find the patient was complaining of chest pain off and on for the last few days. And when the police arrived they found that she had a warrant for her arrest. She reports that she has been doing cocaine every day for the last few weeks and has chest pain. In the ER she is not tachycardic she is not diaphoretic pain is localized substernal nothing is taking to alleviate the symptoms she has not seen another doctor for this complaint PFSH Past Medical History Medical History: Denies Significant Hx ?: Unknown Past Surgical History Other Surgery: Yes (CYST REMOVAL) Social History Alcohol Use: No Tobacco Use: Yes (1 PPD) Substance Use: Yes (DILAUDID, HEROIN, COCAINE) Allergies-Medications (Allergen,Severity, Reaction): Coded Allergies: *MDRO Multi-Drug Resistant Organism (Verified Adverse Reaction, Unknown, ) MRSA PCR Negative x 2 (01/26/17 & 01/29/17)--Cleared per Infection Control no need to isolate for MRSA Hx Prior to 01/29/17 Hx MRSA Wound 05/23/17 Reported Meds & Prescriptions Reported Meds & Active Scripts Active Ibuprofen 600 Mg Tab 600 Mg PO Q6H PRN Atrovent HFA 12.9 GM Inh (Ipratropium [place]) 17 Mcg/Actuation Aer 2 Puff INH Q6HR PRN Cipro (Ciprofloxacin HCl) 500 Mg Tab 500 Mg PO BID Review of Systems Except as stated in HPI: all other systems reviewed are Neg Cardiovascular: Positive: Chest Pain or Discomfort Physical Exam Narrative GENERAL: has healed pox terry all over face and arms . SKIN: Warm and dry. HEAD: Atraumatic. Normocephalic. EYES: Pupils equal and round. No scleral icterus. No injection or drainage. ENT: No nasal bleeding or discharge. Mucous membranes pink and moist. NECK: Trachea midline. No JVD. CARDIOVASCULAR: Regular rate and rhythm. RESPIRATORY: No accessory muscle use. cracks in the right base , severe tenderness to the right ribs under the right breast no vesciles seen GASTROINTESTINAL: Abdomen soft, non-tender, nondistended. Hepatic and splenic margins not palpable. MUSCULOSKELETAL: Extremities without clubbing, cyanosis, or edema. No obvious deformities. NEUROLOGICAL: Awake and alert. No obvious cranial nerve deficits. Motor grossly within normal limits. Five out of 5 muscle strength in the arms and legs. Normal speech. PSYCHIATRIC: Appropriate mood and affect; insight and judgment normal. Data Data Last Documented VS Orders Orders Lorazepam (Ativan) (08/02/17 04:00) Complete Blood Count With Diff (08/02/17 03:53) Comprehensive Metabolic Panel (08/02/17 03:53) Troponin I (08/02/17 03:53) Lipase (08/02/17 03:53) Aspirin Chew (Aspirin Chew) (08/02/17 04:00) Chest, Pa & Lat (08/02/17 ) Levofloxacin (Levaquin) (08/02/17 05:45) Ipratropium Neb (Atrovent Neb) (08/02/17 05:45) Ed Discharge Order (08/02/17 06:13) Electrocardiogram (08/02/17 ) Labs Laboratory Tests Test 08/02/17 04:00 White Blood Count 15.4 TH/MM3 Red Blood Count 4.94 MIL/MM3 Hemoglobin 10.7 GM/DL Hematocrit 32.8 % Mean Corpuscular Volume 66.3 FL Mean Corpuscular Hemoglobin 21.6 PG Mean Corpuscular Hemoglobin Concent 32.5 % Red Cell Distribution Width 19.0 % Platelet Count 365 TH/MM3 Mean Platelet Volume 7.7 FL Neutrophils (%) (Auto) 84.1 % Lymphocytes (%) (Auto) 8.0 % Monocytes (%) (Auto) 7.6 % Eosinophils (%) (Auto) 0.0 % Basophils (%) (Auto) 0.3 % Neutrophils # (Auto) 13.0 TH/MM3 Lymphocytes # (Auto) 1.2 TH/MM3 Monocytes # (Auto) 1.2 TH/MM3 Eosinophils # (Auto) 0.0 TH/MM3 Basophils # (Auto) 0.0 TH/MM3 CBC Comment DIFF FINAL Differential Comment Blood Urea Nitrogen 9 MG/DL Creatinine 0.64 MG/DL Random Glucose 155 MG/DL Total Protein 8.3 GM/DL Albumin 3.0 GM/DL Calcium Level 8.2 MG/DL Alkaline Phosphatase 79 U/L Aspartate Amino Transf (AST/SGOT) 28 U/L Alanine Aminotransferase (ALT/SGPT) 13 U/L Total Bilirubin 0.7 MG/DL Sodium Level 131 MEQ/L Potassium Level 4.2 MEQ/L Chloride Level 99 MEQ/L Carbon Dioxide Level 24.7 MEQ/L Anion Gap 7 MEQ/L Estimat Glomerular Filtration Rate 108 ML/MIN Troponin I LESS THAN 0.02 NG/ML Lipase 67 U/L MDM Medical Decision Making Medical Screen Exam Complete: Yes Emergency Medical Condition: Yes Differential Diagnosis rib costochondritis rib fracture PNA shingles , other malingering Narrative Course Pt has significant infiltrate in her right lower lobe wih effsuion she is given Levaquin and dischargesd with Cipro BID [id number] into police custody. Stable and young and healthy immunecompetent to treat as outpt Diagnosis Primary Impression: Pneumonia Qualified Codes: J18.1 - Lobar pneumonia, unspecified organism Patient Instructions: General Instructions, Pneumonia (ED) Scripts Ibuprofen (Ibuprofen) 600 Mg Tab 600 MG PO Q6H Y for Pain/Inflammation, #40 TAB 0 Refills Prov: Con Rodriguez MD 08/02/17 Ipratropium HFA 12.9 GM Inh (Atrovent HFA 12.9 GM Inh) 17 Mcg/Actuation Aer 2 PUFF INH Q6HR Y for SHORTNESS OF BREATH, #1 INHALER 0 Refills Prov: Con Rodriguez MD 08/02/17 Ciprofloxacin (Cipro) 500 Mg Tab 500 MG PO BID for Infection, #20 TAB 0 Refills Prov: Con Rodriguez MD 08/02/17 Disposition: 01 DISCHARGE HOME Condition: Good Con Rodriguez MD Aug 02, 2017 04:28
[2017-08-02 04:39] LABS: ALKALINE PHOSPHATASE 79 U/L (45-117); ALT (GPT) 13 U/L (10-53); TOTAL BILIRUBIN ADULT 0.7 MG/DL (0.2-1.0); TOTAL PROTEIN 8.3 GM/DL (6.4-8.2); TROPONIN I LESS THAN 0.02 NG/ML (0.02-0.05)
[2017-08-02 04:44] LABS: AST (GOT) 28 U/L (15-37); BICARBONATE 24.7 MEQ/L (21.0-32.0); BLOOD UREA NITROGEN 9 MG/DL (7-18); CALCIUM 8.2 MG/DL (8.5-10.1); CHLORIDE 99 MEQ/L (98-107); CREATININE 0.64 MG/DL (0.50-1.00); GLOMERULAR FILTRATION RATE 108 ML/MIN (>89); GLUCOSE,RANDOM 155 MG/DL (74-106); SODIUM (NA) 131 MEQ/L (136-145)
--- NOTE | 2017-08-02 05:39 | RADRPT ---
EXAM DATE/TIME: 08/02/2017 05:26 [facility] COMPARISON: No previous studies available for comparison. INDICATIONS : Chest pain. MEDICAL HISTORY : None. SURGICAL HISTORY : None. ENCOUNTER: Initial ACUITY: 1 day PAIN SCORE: 10/10 LOCATION: Bilateral chest FINDINGS: PA and lateral views of the chest demonstrate a normal-sized cardiac silhouette. There is severe foca l airspace consolidation in the right middle lobe with mild degree of air space opacity/consolidation in the right lower lobe. There is blunting of the right costophrenic sulcus. No pneumothorax is iden tified. Left lung demonstrates no abnormality. Bones and soft tissues demonstrate no acute finding. CONCLUSION: Right middle and right lower lobe airspace consolidation with likely trace right pleural fluid. This could represent an infectious process/pneumonia in the appropriate clinical setting. Recommend follow up chest x-ray following appropriate therapy to confirm resolution. Phuc Wolf MD on August 02, 2017 at 5:36 Board Certified Radiologist. This report was verified electronically.
[2017-08-02] MEDS ORDERED: LEVOFLOXACIN 750 MG TAB PO ONE (05:45)
[2017-08-02] MEDS ORDERED: RESP: IPRATROPIUM 0.5 MG/2.5 ML NEB NEB ONE (05:45)
[2017-08-02] MEDS ORDERED: CIPR-9 PO (06:11)
[2017-08-02] MEDS ORDERED: IBUP-232 PO (06:12)
[2017-08-02] MEDS ORDERED: IPRA17I INH (06:12)
--- NOTE | 2017-08-02 20:13 | EKG ---
Date Performed: 08/02/2017 Time Performed: 03:30:36 PTAGE: 31 years EKG: Sinus rhythm POSSIBLE RIGHT VENTRICULAR HYPERTROPHY ABNORMAL ECG NO PREVIOUS TRACING DOCTOR: Duc Acevedo Interpretating Date/Time 08/02/2017 20:13:25
== END 2017-08-02 06:36 | disposition home or self-care (01) ==
LOC: NEPE 03:01
DX: J18.1 Lobar pneumonia, unspecified organism (principal); F17.200 Nicotine dependence, unspecified, uncomplicated; F14.90 Cocaine use, unspecified, uncomplicated
CPT/HCPCS: 71046; 80053; 83690; 84484; 85025; 93005; 94664; 99285; J7644